=== PATIENT | female | born 1985 | race Caucasian/White ===

== ENCOUNTER 2017-11-04 07:52 | Emergency (ER) | payer OTHER, SELFPAY ==
[2017-11-04 07:53] VITALS: BP 156/94; PULSE 116; RESP 18; TEMP 36.8; O2SAT 97; BMI 26.6
--- NOTE | 2017-11-04 08:16 | ED.VISSUMM ---
- ER Visit Summary Date of Service: 11/04/17 Chief Complaint: [] Left paralumbar back pain for days history of same for years History of Present Illness: The patient is a 32 F [] history of lumbar back pain etiology is unclear possibly related to muscle spasm disc etc. she has been seen and evaluated by physicians in the past it resolves and then recurs for last few days she has had a recurrence of his back pain she basically points to her left lumbar back and again the pain rates her buttock she has had no trauma no fever no cough no abdominal pain no urinary symptoms normal bowel bladder habits she is able to stand and walk without difficulty she does wear a brace to her right knee related to a knee injury for which she has seen was to orthopedics the pain basically intensified today showed no medications at home and she came in for evaluation Physical Examination: [] Vitals are within normal range is complaining of pain she is obviously in no major distress she is holding her left paralumbar back HEENT cardiac pulmonary exam unremarkable M soft nontender the midline back is nontender the pain is to the left paralumbar musculature she has full range of motion of both lower extremities there is no signs of cauda equina. She can stand and walk without difficulty. She can toe raise heel raise knee bend with no signs of motor deficit she indicates the pain radiates to her left buttock, she assures me she is having no difficulty with bowel or bladder habits and she has had no trauma no urinary symptoms and she has had this pain multiple times in the past her father's in the room with her Test Results: [] Emergency Department Course and Treatment: [] Explained all the above to the patient her father at this time we provided her Toradol [place] Norflex I explained imaging could be obtained but would likely not be of benefit given is been no trauma she has had this before they deferred x-rays the father expressed the desire that something definitively be done today about her back pain as she cannot possibly follow up before Monday given the holiday, I explained to him the best course of action is to start her on nonsteroidals, Flexeril, and have her follow up with [facility] who she seen in the past or her primary care physicians for further management and possible referral to back physicians and further management as an outpatient they agree to that plan addition she will be given 1 day off work Treatment Plan: [] Disposition: [] Home stable Impression: [] Acute recurrent lumbar back pain This note was generated with [employer] dictation software. It may contain incorrect words, spelling, and punctuation that were not noted in review of the chart prior to signing ED Disposition - Plan for ED Patient: Chief Complaint: Back Referrals: Nasim Walsh MD [Primary Care Provider] -
--- NOTE | 2017-11-04 08:19 | ED.DEP ---
ED Disposition - Plan for ED Patient: Chief Complaint: Back Instructions: ED Spasm Back No Trauma Prescriptions: Naproxen [Naprosyn] 500 mg PO BID PRN #20 tab Cyclobenzaprine [Flexeril] 10 mg PO TID PRN #10 tab PRN Reason: Muscle Spasm Referrals: Nasim Walsh MD [Primary Care Provider] -
[2017-11-04] MEDS: Ketorolac 60 MG/2 ML Vial IM (08:27)
[2017-11-04] MEDS: HYDROcodone Bitartrate/Apap 5/325 Tablet PO (08:27)
[2017-11-04] MEDS: Orphenadrine 100 MG Tablet PO (08:44)
[2017-11-04 08:48] VITALS: BP 112/68; PULSE 79; RESP 22; O2SAT 98
--- NOTE | 2017-11-04 08:51 | ED.RN ---
THIS NURSE REVIEWED D/C INSTRUCTIONS WITH PT. PT VERBALIZED UNDERSTANDING OF INSTRUCTIONS. FATHER IN THE ROOM ASKING MULTIPLE QUESTIONS. FATHER STATES SHE NEED A DOCTOR'S EXCUSE FOR MONDAY AND MONDAY. THIS NURSE EXPLAINED TO THE PT THAT HER DR EXCUSE IS THROUGH MondayNOVEMBER 06 RETURN TO WORK ON MONDAY. PT FATHER STATES THIS IS RIDICULOUS. SHE NEEDS OFF THROUGH MONDAY. I'LL BE CONTACTING MY CORPORATE PILOT ABOUT THIS. PT DENIES FURTHER NEEDS OR QUESTIONS AT THIS TIME. PT AMBULATES FROM ROOM ON OWN WITHOUT ASSISTANCE FROM STAFF
== END 2017-11-04 08:55 | disposition home or self-care (01) ==
LOC: ED 08:18
PROVIDERS: Emergency Provider Emergency Medicine; Family Provider Internal Medicine; PCP Internal Medicine
DX: M54.5 Low back pain (principal); G89.29 Other chronic pain
CPT/HCPCS: 96372; 99283

== ENCOUNTER → 2018-02-21 13:50 | Outpatient (CLI) | payer OTHER, SELFPAY ==
[2018-01-15 12:35] VITALS: BP 122/68; PULSE 98; RESP 18; TEMP 36.2; O2SAT 96; BMI 28.0
[2018-01-15 12:41] LABS: Internal QC Validated? YES +Cl - CLEAR BKGD
[2018-01-15 12:42] LABS: Pregnancy, Urine Positive Negative
== END ==
LOC: PAT 13:50
PROVIDERS: Family Provider Internal Medicine; PCP Internal Medicine; Visit Provider Anesthesiology Pain Medicine
PROC: 3E0S3BZ Introduction of Anesthetic Agent into Epidural Space, Percutaneous Approach (ICD-10-PCS; CPT 62282; principal; 2018-01-15 13:05)
DX: Z53.8 Procedure and treatment not carried out for other reasons (principal)
CPT/HCPCS: 81025; J7120; J3490

== ENCOUNTER 2018-09-12 23:00 | Inpatient (IN) | payer OTHER, SELFPAY ==
[2018-09-12 23:18] VITALS: BMI 35.2
[2018-09-13] MEDS: miSOPROStol 25 MCG TABLET VAGINAL ×2 (00:20→04:20)
[2018-09-13 00:39] LABS: International Normalized Ratio 0.9; Prothrombin Time (Protime)PT. 11.9 SECONDS (11.7-14.9)
[2018-09-13 00:40] LABS: Partial Thromboplast Time 26.9 Seconds (24.1-36.2)
[2018-09-13 00:44] LABS: Absolute Lymphocyte Count 2.85 X10^3/ul (0.83-4.51); Absolute Neutrophil Count 14.5 X10^3/uL (2.0-7.7); Basophil# 0.02 X10^3/uL; Basophil% 0.1 % (0-1); Eosinophil# 0.09 X10^3/uL; Eosinophils% 0.5 % (0-5); Hematocrit 35.4 % (37-47); Hemoglobin 11.9 g/dl (12.0-15.0); Lymphocyte # 2.85 X10^3/ul (4.0); Lymphocyte % 15.5 % (19-41); Mean Corp Hgb Conc 33.6 g/gl (32-36); Mean Corpuscular Hgb 30.7 pg (27.0-32.0); Mean Corpuscular Volume 91.5 fL (81-99); Mean Platelet Vol. 9.4 fl (6.2-12.0); Monocyte# 0.82 X10^3/uL; Monocyte% 4.5 % (0-10); Neutrophil # 14.46 X10^3/uL (2.7-7.7); Neutrophil % 78.9 % (47-70); Platelet Count 484 K/mm3 (150-450); RBC Distribution Width CV 14.5 % (11.6-14.6); RBC Distribution Width SD 47.8 fl (35.1-43.9); Red Blood Count 3.87 M/mm3 (4.2-5.4); White Blood Count 18.3 K/mm3 (4.4-11.0)
[2018-09-13 00:46] LABS: POSITIVE COUNT NO; POSITIVE DIFFERENTIAL NO; POSITIVE MORPHOLOGY NO
[2018-09-13 00:47] LABS: AST(SGOT) 13 U/L (15-37); Alanine Aminotransfer ALT/SGPT 14 U/L (13-56); Creatinine, Serum 0.79 mg/dL (0.55-1.02); EST Glomerular Filtration Rate 89 mL/min (>60); Est Glom Filt Rate - Afr Amer 108 mL/min (>60); Estimated Creatinine Clearance 88.28 ml/min
[2018-09-13 00:53] LABS: Amphetamine Urine VISTA NEGATIVE (<1000 ng/mL); Barbiturate Urine VISTA NEGATIVE (< 200 ng/mL); Benzodiazepine Urine VISTA NEGATIVE (< 200 ng/mL); Cocaine Urine VISTA NEGATIVE (< 300 ng/mL); Ecstacy Urine VISTA NEGATIVE (< 500 ng/mL); Methadone Urine VISTA NEGATIVE (< 300 ng/mL); PCP Urine VISTA NEGATIVE (< 25 ng/mL); THC Urine VISTA NEGATIVE (< 50 ng/mL); Vista UDS pH Range 7
[2018-09-13 00:55] LABS: Protein, Urine (Random) 23.4 mg/dL (<11.9); Protein:Creat Ratio 278 mg/g CRE (0-200)
[2018-09-13 01:46] LABS: Bedside Glucose 94 mg/dL (70-110)
[2018-09-13 05:06] LABS: Bedside Glucose 87 mg/dL (70-110)
[2018-09-13] MEDS: Acetaminophen 325 MG Tablet PO (06:42)
[2018-09-13] MEDS: 0.9% Normal Saline 100 ML IV.SOLN. INTRA-UTER (08:35)
[2018-09-13] MEDS: Lactated Ringers 1,000 ML 50 ML IV ×4 (08:36→22:21)
--- NOTE | 2018-09-13 08:51 | PCM.HP.OB ---
History Date of Admission: 09/12/18 Final HIEU: 09/20/18 Gestational age: 39 Weeks and 0 Days History of this : This is a 32 year-old, G [], P [], at 40 weeks gestational age. Surgical History: Surgical History (Last Updated 09/13/18 @ 15:44 by Tiffanie Dhaliwal) H/O dilation and curettage Z98.890 Allergies guaifenesin Allergy (Verified 09/12/18 23:37) Other NOT SURE REACTION, WAS A CHILD WHEN HAD REACTION. prednisone Allergy (Verified 09/12/18 23:37) Hives tramadol Adverse Reaction (Verified 09/12/18 23:37) Upset Stomach Home Medications: Home Medications Ferrous Sulfate [Iron] 1 tab PO DAILY 09/12/18 Pnv 29-1 Tablet 1 tab PO DAILY 09/12/18 Smoking Status: Current every day smoker Alcohol: None Substance Use Type: Marijuana Heart Tracin with mod variability, accels TOCO Analysis: irregular History Past Pregnancies: Past Pregnancies Delivery Date Name GA/Weeks Outcome Route Weight Gender Labor Length Anesthesia Delivery Location Provider FOB Labs: see [facility] prenatals Physical Exam General: Alert, Oriented x3 Abdomen: Soft, Non Tender, Non-Distended, Gravid SLUNK SKIN CURER: Normal external genitalia Estimated gestational size: Appropriate for gestational size Cervix Dilation (cm): 0.5 Station: -2 Effacement (%): 70 Assessment/Plan This is a 32 year-old female at 39 weeks gestational age. Admit to L&D Gestational diabetes - was controlled well on insulin. BS normal in labor. Induction - s/p cytotec x2. Start pitocin. Attempted to placed intracervical henderson. GBS negative Pain - epidural when desired EFW - less than 4500g, patient with adequate pelvis Routine care
--- NOTE | 2018-09-13 08:57 | HP.PCM_ITS ---
History Date of Admission: 09/12/18 Final HIEU: 09/20/18 Gestational age: 39 Weeks and 0 Days History of this : This is a 32 year-old, G [], P [], at 40 weeks gestational age. Surgical History: Surgical History (Last Updated 09/13/18 @ 15:44 by Tiffanie Dhaliwal) H/O dilation and curettage Z98.890 Allergies guaifenesin Allergy (Verified 09/12/18 23:37) Other NOT SURE REACTION, WAS A CHILD WHEN HAD REACTION. prednisone Allergy (Verified 09/12/18 23:37) Hives tramadol Adverse Reaction (Verified 09/12/18 23:37) Upset Stomach Home Medications: Home Medications Ferrous Sulfate [Iron] 1 tab PO DAILY 09/12/18 Pnv 29-1 Tablet 1 tab PO DAILY 09/12/18 Smoking Status: Current every day smoker Alcohol: None Substance Use Type: Marijuana Heart Tracin with mod variability, accels TOCO Analysis: irregular History Past Pregnancies: Past Pregnancies Delivery Date Name GA/Weeks Outcome Route Weight Gender Labor Length Anesthesia Delivery Location Provider FOB Labs: see [facility] prenatals Physical Exam General: Alert, Oriented x3 Abdomen: Soft, Non Tender, Non-Distended, Gravid CABLE RIGGER: Normal external genitalia Estimated gestational size: Appropriate for gestational size Cervix Dilation (cm): 0.5 Station: -2 Effacement (%): 70 Assessment/Plan This is a 32 year-old female at 39 weeks gestational age. Admit to L&D Gestational diabetes - was controlled well on insulin. BS normal in labor. Induction - s/p cytotec x2. Start pitocin. Attempted to placed intracervical henderson. GBS negative Pain - epidural when desired EFW - less than 4500g, patient with adequate pelvis Routine care
[2018-09-13 09:05] LABS: Bedside Glucose 119 mg/dL (70-110)
[2018-09-13] MEDS: Oxytocin 30 units/NS 500 ml 30 UNITS/500 ML IV.SOLN IV (09:17)
[2018-09-13] MEDS: fentaNYL-bupivacaine (epidural) 100 ML BAG EPIDURAL ×3 (11:50→21:11)
[2018-09-13 13:15] LABS: Bedside Glucose 77 mg/dL (70-110)
--- NOTE | 2018-09-13 13:36 | PCM.PN.BLA ---
Progress Note S: Patient comfortable with epidural O: vcx - 1.5/70/-2 AROM clear fluid fhts - 135 with mod variability, accels tocos - Q2-4 minutes A&P: continue pitocin induction GDM - continue accuchecks
[2018-09-13 21:26] LABS: Bedside Glucose 79 mg/dL (70-110)
[2018-09-13 21:31] LABS: Bedside Glucose 109 mg/dL (70-110)
[2018-09-14] MEDS: fentaNYL-bupivacaine (epidural) 100 ML BAG EPIDURAL (04:18)
[2018-09-14] MEDS: Lactated Ringers 1,000 ML 15 ML IV (04:51)
[2018-09-14] MEDS: Oxytocin 30 units/NS 500 ml 30 UNITS/500 ML IV.SOLN 334 UNITS IV (04:55)
--- NOTE | 2018-09-14 05:19 | PCM.OB.VAG ---
Vaginal Delivery Maternal Presentation: Medically Indicated Induction Method of Induction: Pitocin, Amniotomy, Cytotec Medical Reason for Induction: Maternal Medical Condition: list: - GDM on insulin Amniotic Membrane Rupture Type: Artificial Amniotic Fluid Description: Clear Final HIEU: 09/20/18 Gestational age: 39 Weeks and 1 Days Date of Procedure: 09/14/18 Pre-Operative Diagnosis: Gestational diabetes Post-Operative Diagnosis: Same Surgery/ Procedure Performed: Spontaneous Vaginal Delivery Type of Anesthesia: Epidural Description of Procedure: Patient prepped & draped when c/c/+3. She continued pushing for another 2 hours. Patient made some progress but was noted to have a tight vaginal & perineal band. Decision made to cut 2nd degree episiotomy. Patient continued pushing & delivered head. Shoulders & body easily followed. placed on maternal abdomen where 3VC clamped & cut in delayed fashion. Placenta delivered with gentle traction. Good uterine tone obtained. Presentation: DAIN Placental Delivery Description: Expressed Placenta Disposition: [facility] Cord Vessel Description: 3 Vessels Cord Entanglement: Around neck x 1, loose Estimated Blood Loss: 300ml A gender: Male (1 minute): 8 (5 minute): 9 Episiotomy Description: 2nd degree - repaired with 3-0 vicryl Laceration: None Medications given after delivery: IV Pitocin Complications: None
[2018-09-14] MEDS: Oxytocin 30 units/NS 500 ml 30 UNITS/500 ML IV.SOLN 167 UNITS IV (05:25)
[2018-09-14] MEDS: Acetaminophen 500 MG Tablet 1000 MG PO ×2 (05:45→18:49)
[2018-09-14] MEDS: Cefazolin 2 GM in 0.9% Normal Saline 100 ML IV (06:03)
--- NOTE | 2018-09-14 06:10 | EKG12_ITS ---
Test Reason : Blood Pressure : / mmHG Vent. Rate : 136 BPM Atrial Rate : 136 BPM P-R Int : 114 ms QRS Dur : 074 ms QT Int : 296 ms P-R-T Axes : 056 072 013 degrees QTc Int : 445 ms Sinus tachycardia Otherwise normal ECG No previous ECGs available Confirmed by JORY LAL, ANA ([id number]), publishing editor NITISH GAMINO ([id number]) on 09/26/2018 2:04:37 PM Referred By: Danyell Bianchi Confirmed By:ANA CORLEY MD
[2018-09-14] MEDS: 0.9% Saline Lock 10 ML Syringe IV ×2 (07:32→21:59)
[2018-09-14 07:55] LABS: Bedside Glucose 103 mg/dL (70-110)
[2018-09-14 08:11] LABS: Bedside Glucose 102 mg/dL (70-110)
[2018-09-14 09:40] VITALS: BP 119/62; PULSE 124; RESP 24; TEMP 36.6; O2SAT 97
[2018-09-14 12:00] VITALS: BP 115/64; PULSE 137; RESP 16; TEMP 36.4
--- NOTE | 2018-09-14 12:17 | PCM.PN.OB ---
Subjective: Patient walking at bedside, reporting no issues at this time. Denies issues with ambulation or urination. Patient had + BM today - taking stool softeners as directed. Patient is bottlefeeding, reports that baby is tolerating formula well. Patient denies SOB, chest pain, REY, dizziness or scotoma. Objective: VSS, Normotensive - see nursing note for vital. Most recent HR = 124. Blood sugar this morning 102 Breasts soft, nipples without cracks or blisters. No erythema noted. CTAB, RRR Abdomen NT x 4 quadrants, FF midline 2FB below umbilicus Perineum well-approximated, small rubra lochia Trace swelling in LE, non-pitting Negative calf tenderness noted BL - Physical Exam General: Alert, Oriented x3, Cooperative HEENT: Atraumatic, Normocephalic Neck: Supple Lungs: Clear to auscultation, Normal air movement Cardiovascular: Regular rate, No murmurs Abdomen: Bowel Sounds Present, Soft, Non Tender, Passing Flatus, No hernias noted Extremities: Capillary Refill Less than 3 Seconds, Edema - trace edema, Peripheral Pulses Normal Skin: No rashes, No breakdown Musculoskeletal: No Tenderness to Palpation of Joints or Extremities Neurological: Cranial nerves II-XII grossly intact, Deep Tendon Reflexes 2+/4 and Symmetrical Psych/Mental Status: Normal Affect, Appropriate Vital Signs Temp Pulse Resp BP Pulse Ox 97.9 F 124 H 24 H 119/62 97 09/14/18 09:40 09/14/18 09:40 09/14/18 09:40 09/14/18 09:40 09/14/18 09:40 Oxygen Delivery Method Room Air Weight: 205 lb Body Mass Index (BMI) 35.2 Intake and Output for Last 24 Hours 09/12/18 09/13/18 09/14/18 23:59 23:59 23:59 Intake Total 2590 / 2590 1007 / 1007 Balance 2590 / 2590 1007 / 1007 POC Glucose 09/14/18 09/14/18 09/13/18 08:04 00:54 21:24 POC Glucose 102 103 109 09/13/18 09/13/18 16:58 13:08 POC Glucose 79 77 Medical Necessity - Tobacco Use Smoking Status: Current every day smoker Assessment/Plan 32 y/o PPD #0, Normal , Sinus Tachycardia, Gestational Diabetes - Resolved P: 1) Continue present orders at this time - recheck fasting blood sugar in the morning 2) Encourage patient to push PO fluids at this time 3) Anticipate discharge to home tomorrow Cally LONG
--- NOTE | 2018-09-14 14:58 | CASEMGMT ---
Addendum entered and electronically signed by Soco Martinez 09/14/18 16:21: Reviewed and approve MH TEACHER student documentation below. -Soco Martinez, ELISSA, MAINFRAME PROGRAMMER ANALYST Original Note: Social Work Labor and Delivery Date of Referral: 09/13/18 Time of Referral: 830am Referred by: verbal notification from charge nurse Date of intervention: 09/14/18 Time of intervention: 2pm Reason for referral: positive tox screen during history obtained from: medical record, mother of the baby Giovanna morel (MOB) and father of the baby (FOB) Genaro morel. Household Composition: MOB and FOB live together. MOB reports no history of domestic violence or safety concerns. Patients parent guardian status: MOB and FOB have been together for 15 years. This is MOB and FOB's first child. Medical History: MOB was to 1 after the of baby Deon. MOB started care at 8 weeks. Baby Deon was born 09/14/18 at 5lbs and 16oz with scores of 8 and 9. Educational status: MOB graduated high school and confirmed to be able to read, write, and comprehend. Financial Status: MOB worked at [employer] during and stopped working roughly 3 months before delivery. FOB works at [employer]. Infant supplies: MOB and FOB report to have a car seat, Halo bassinet, bouncer, monitor, clothing, diapers, wipes and formula. Childcare/givers: MOB and FOB will be primary childcare givers. NELLY reported that her mother and father will be supplemental caregivers. Transportation: NELLY does not drive but FOElizabeth does drive. NELLY's father also helps with transportation Programs/agencies involved: MOB and FOB are not connected with any agencies. MOB and FOB requested a [employer] application and Food card application. MOB accepted [facility] referral. Children Services/ Legal Issues: MOB and FOB denied any history of children services of legal issues. Behavioral Health Issues: Mental Health History: MOB does not have any mental health diagnoses. MOB denies past or present thoughts of suicide or attempts. Substance Use History: MOB reports to use marijuana for back pain. MOB quit roughly three months ago. MOB also tested positive for oxycodone during . MOB's declaration of quitting marijuana was in both April 2018 and early June 2018. Family History: MOB and FOB reported that FOElizabeth's father abuses alcohol. Maternal drug screens: MOB tested positive for marijuana and oxycodone on 02/09/18. Mob tested positive for marijuana on 03/08/18. MOB tested negative at delivery on 09/13/18 Drug Screens: Urine and Meconium are pending at this time. Family/Social Stressors: MOB reports not using marijuana is difficult and a potential stressor. Support Systems: MOB's parents are support. FOElizabeth's sister and [id number] are also supports. PPD/Shaken Baby/Safe Sleeping: MOB and FOB review PPD/Shaken Baby/Safe Sleeping together and parents report to understand. ASSESSMENT: MOB and FOB were in room with baby Deon. MOB and FOB answered all questions appropriately. FOB stayed to answer general questions and review PPD/Shaken baby/safe sleeping. FOB was asked to leave the room so MOB could speak privately. MOB repotred to use marijuana for back pain. MOB also acknowledged usage of oxycodone. MOB reported to understand the dangers of usage during . MOB has quit marijuana for roughly 3 months now. MOB reported to have lessened cigarette smoking, as well. MOB reports that FOB still uses marijuana occasionally. MOB's plan of safety is to not use marijuana again unless back pain returns. MOB has alterative for pain management which includes shots for pain. MOB plans to try this alternative. MOB reported to also have plan of safety to have no marijuana in the home and if does use again to have dinkey engineer for Deon. MOB reports that FOB only uses marijuana at work. MOB was informed about [place] law and report being made to Children Services. MOB denied any history of mental health diagnoses and suicide thoughts. MOB reports to be doing well with new baby and excited to take Deon home. PLAN: MOB to home with baby. salvage worker provided [facility] resource packet, PPD information, WIC/HMG information. Social work to submit CPS referral. Social work to submit [facility] referral. Social work to provide WIC application and food card application. -Tina Fleming, ACTHY Student Metal Room Dental Technician.
[2018-09-14 15:50] VITALS: BP 133/76; PULSE 134; TEMP 36.6
--- NOTE | 2018-09-14 15:55 | CASEMGMT ---
Addendum entered and electronically signed by Soco Martinez 09/14/18 16:21: Reviewed and approve CRANE FOLLOWER student documentation below. Referral to children services made due to substance exposed . -ELISSA Healy, RAILWAY TRACTION LINE WORKER Original Note: Social Work Labor and Delivery Children Services report securely made to [facility] Services at [phone]. Help me grow referral securely submitted online via [facility]'s website from verbal consent of MOB. WIC application and Food card application provided to MOB an FOB. No other services requested or indicated at this time. -Tina Fleming, CRANE FOLLOWER Student Pit Crew Support Worker.
[2018-09-14 20:10] VITALS: PULSE 114
[2018-09-14 20:17] VITALS: BP 131/59; PULSE 114; RESP 20; TEMP 36.6; O2SAT 98
[2018-09-15 00:10] VITALS: BP 124/59; PULSE 106; RESP 18; TEMP 36.3; O2SAT 98
[2018-09-15 03:40] VITALS: BP 139/75; PULSE 116; RESP 16; TEMP 36.4; O2SAT 97
[2018-09-15] MEDS: Etonogestrel 68 MG IMPLANT SQ (06:50)
--- NOTE | 2018-09-15 07:02 | PCM.PN.OB ---
Subjective: Patient sitting up in bed at this time, at bedside underneath bililights. Patient reports that bleeding has decreased, reports no issues with urination or ambulation. Patient has continued perineal discomfort and stitches feel sensitive. Patient desires Nexplanon to be placed at this time. Objective: VSS, Afebrile. HR = 100-114 Breasts soft, nipples intact Abdomen NT x 4 quadrants, FF midline 2FB below umbilicus +2/4 reflexes, no edema in LE scant rubra lochia, perineum well-approximated negative calf tenderness to palpation - Physical Exam General: Alert, Oriented x3, Cooperative HEENT: Atraumatic, Normocephalic Neck: Supple Lungs: Normal air movement Cardiovascular: Regular rate, No murmurs Abdomen: Soft, Non Tender Extremities: No edema, Capillary Refill Less than 3 Seconds Skin: No rashes, No breakdown Musculoskeletal: No Tenderness to Palpation of Joints or Extremities Neurological: Cranial nerves II-XII grossly intact Psych/Mental Status: Normal Affect, Appropriate Vital Signs Temp Pulse Resp BP Pulse Ox 97.6 F L 116 H 16 139/75 H 97 09/15/18 03:40 09/15/18 03:40 09/15/18 03:40 09/15/18 03:40 09/15/18 03:40 Oxygen Delivery Method Room Air Weight: 205 lb Body Mass Index (BMI) 35.2 Intake and Output for Last 24 Hours 09/13/18 09/14/18 09/15/18 23:59 23:59 23:59 Intake Total 2590 / 2590 1007 / 1007 Output Total 1400 / 1400 Balance 2590 / 2590 -393 / -393 POC Glucose 09/14/18 09/14/18 08:04 00:54 POC Glucose 102 103 Medical Necessity - Tobacco Use Smoking Status: Current every day smoker Assessment/Plan 32 y/o s/p , PPD #1, Sinus Tachycardia - improved, Nexplanon Insertion P: 1) Nexplanon placed per patient wishes 2) Continue PP orders 3) IV heplock removed, patient vital signs stable 4) Anticipate discharge to home tomorrow Cally Kerr APRN-CJ
[2018-09-15 09:00] VITALS: BP 142/104; PULSE 129; RESP 18; TEMP 36.2
[2018-09-15] MEDS: Senna/Docusate Sodium 1 Tablet PO (09:02)
--- NOTE | 2018-09-15 09:59 | PCM.PN.BLA ---
Progress Note Addendum: Patient is feeling very well - was notified by pediatric providers that baby may be well enough to be discharged to home later today. Patient is interested and feels well enough for discharge this afternoon. Patient continues to deny issues with urination and ambulation. Denies pain from Nexplanon insertion. Denies any other issues. A: 32 y/o PPD #1, Normal course, Sinus Tachycardia resolved, GDM - resolved P: 1) discharge order placed, patient to be discharged pending discharge 2) RTC at 2 and 6 weeks PP Cally LONG
--- NOTE | 2018-09-15 10:08 | DCINST_ITS ---
Discharge Diet: No Restrictions Discharge Activity: Return to Normal Activity, May not drive while taking narcotic pain medications., May Shower May resume sexual activity in: 4-6 weeks Additional Activity Instructions:: Nothing in the vagina for 4-6 weeks. You may return to work/school in 6 weeks. Call your doctor if your incision/area has: Continuous Slow Oozing, Sudden Increased Bleeding, Increased Pain/ Swelling, Increased Redness, Foul Smelling Discharge Call your doctor if you observe: Fever of 101 or Higher, Inability to urinate, Inability to have a bowel movement, Using more than one pad per hour, Uncontrolled pain Additional Instructions: If you experience any of the following, contact your healthcare provider. * Bleeding that soaks a pad every hour for 2 hours * Fever 100.4 or higher * Unrelieved incision or abdominal pain * Swelling, redness, discharge or bleeding from your incision or episiotomy site * Your incision begins to separate * Problems urinating (including inability to urinate or burning while urinating). * Visual changes * Severe headache * Flu-like symptoms * Pain or redness in one of both of your breasts * Pain, warmth, tenderness or swelling in your legs, especially the calf area * Frequent nausea and vomiting * Symptoms of depression or anxiety If you experience any of the following, call 911 or go to the nearest Emergency Room. * Chest pain * Problems breathing * Seizure activity * Partial or complete paralysis of a body part, slurred speech, weakness or drooping of the face, or a sudden inability to walk or hold your balance Allergies/Adverse Reactions: Allergies guaifenesin Allergy (Verified 09/12/18 23:37) Other NOT SURE REACTION, WAS A CHILD WHEN HAD REACTION. prednisone Allergy (Verified 09/12/18 23:37) Hives tramadol Adverse Reaction (Verified 09/12/18 23:37) Upset Stomach Medications to take at Discharge Ferrous Sulfate [Iron] 1 tab PO DAILY 09/12/18 Pnv 29-1 Tablet 1 tab PO DAILY 09/12/18 Acetaminophen [Tylenol] 1,000 mg PO Q8H PRN PRN #15 tablet 09/15/18 Ibuprofen [Motrin] 600 mg PO Q6H PRN PRN #30 tablet 09/15/18 The following prescriptions were given: Ibuprofen [Motrin] 600 mg PO Q6H PRN PRN #30 tablet PRN Reason: Mild Pain (-08/19) Acetaminophen [Tylenol] 1,000 mg PO Q8H PRN PRN #15 tablet PRN Reason: Mild Pain (-08/19) Please Follow Up With: Tiffanie Dhaliwal When: Call to make an appointment with your doctor in 2 weeks and 6 weeks. Primary Care Physician: Nasim Walsh MD [Primary Care Provider] - Test Results: Test results from this visit will be discussed in further detail at your follow- up appointment, if applicable. Proposed Discharge Date: 09/15/18
[2018-09-15 14:00] VITALS: BP 136/79; PULSE 120; RESP 16; TEMP 36.8
[2018-09-15] MEDS: Ibuprofen 600 MG Tablet PO (16:58)
[2018-09-15 20:00] VITALS: BP 131/66; PULSE 102; RESP 18; TEMP 36.4; O2SAT 97
[2018-09-16 02:10] VITALS: BP 133/69; PULSE 105; RESP 16; TEMP 36.6; O2SAT 98
[2018-09-16 05:06] LABS: Bedside Glucose 95 mg/dL (70-110)
[2018-09-16 08:04] VITALS: BP 131/72; PULSE 117; RESP 16; TEMP 36.3; O2SAT 98
[2018-09-16] MEDS: Ibuprofen 600 MG Tablet PO (08:07)
[2018-09-16] MEDS: Senna/Docusate Sodium 1 Tablet PO (08:08)
--- NOTE | 2018-09-16 10:33 | PN.OBGYN_ITS ---
Subjective: Patient ambulating around the room. Reports no issues at this time. Notes that her perineum is feeling less sore today and that she is not bleeding much anymore. Baby was not discharged to home yesterday, so discharge order was cancelled. Baby's bilirubin is now in the normal range, anticipate discharge today. Objective: VSS, Afebrile Nipples without cracks or blisters, breasts soft Abdomen NT x 4 quadrants, FF midline 3FB below umbilicus +2/4 reflexes in LE, no edema noted scant rubra lochia, perineum well-approximated negative calf tenderness to palpation - Physical Exam General: Alert, Oriented x3, Cooperative HEENT: Atraumatic, Normocephalic Neck: Supple Lungs: Normal air movement Cardiovascular: Regular rate Abdomen: Soft, Non Tender Extremities: No edema, Capillary Refill Less than 3 Seconds Skin: No rashes, No breakdown Musculoskeletal: No Tenderness to Palpation of Joints or Extremities Neurological: Cranial nerves II-XII grossly intact, Deep Tendon Reflexes 2+/4 and Symmetrical Psych/Mental Status: Normal Affect, Appropriate Vital Signs Temp Pulse Resp BP Pulse Ox 97.4 F L 117 H 16 131/72 H 98 09/16/18 08:04 09/16/18 08:04 09/16/18 08:04 09/16/18 08:04 09/16/18 08:04 Oxygen Delivery Method Room Air Weight: 205 lb Body Mass Index (BMI) 35.2 Intake and Output for Last 24 Hours 09/14/18 09/15/18 09/16/18 23:59 23:59 23:59 Intake Total 1007 / 1007 Output Total 1400 / 1400 Balance -393 / -393 POC Glucose 09/15/18 07:29 POC Glucose 95 Medical Necessity - Tobacco Use Smoking Status: Current every day smoker Assessment/Plan 32 y/o s/p , PPD #2, Normal Course P: 1) Discharge to home today pending discharge 2) RTC to [facility] at 2 and 6 weeks PP Cally LONG
== END 2018-09-16 11:50 | disposition home or self-care (01) | DRG 806 ==
PROVIDERS: Admitting Provider Obstetrics & Gynecology; Family Provider Internal Medicine; PCP Internal Medicine; Referring Provider Obstetrics & Gynecology; Visit Provider Obstetrics & Gynecology
DX: O24.424 Gestational diabetes mellitus in childbirth, insulin controlled (principal); O86.4 Pyrexia of unknown origin following delivery; Z37.0 Single live birth; O69.81X0 Labor and delivery complicated by cord around neck, without compression, not applicable or unspecified; O99.334 Smoking (tobacco) complicating childbirth; Z3A.39 39 weeks gestation of pregnancy; O90.89 Other complications of the puerperium, not elsewhere classified; R00.0 Tachycardia, unspecified
CPT/HCPCS: 59025; 59050; 80307; 82565; 82570; 82962; 84156; 84450; 84460; 84550; 85025; 85610; 85730; 86850; 86900; 93005; 99218; J7120; A4216; G0378

== ENCOUNTER 2019-11-07 19:39 | Emergency (ER) | payer OTHER, SELFPAY ==
[2019-11-07 19:40] VITALS: BP 160/87; PULSE 112; RESP 18; TEMP 36.8; O2SAT 98; BMI 29.9
[2019-11-07] MEDS: Diphth,Pertuss(Acell),Tet Vac 0.5 ML Vial IM (21:08)
[2019-11-07] MEDS: Amox/Clavulanate 875 MG Tablet PO (21:08)
--- NOTE | 2019-11-07 22:00 | ED.DEP ---
ED Disposition - Plan for ED Patient: Instructions: ED Bite Cat Prescriptions: Amox/Clavulanate Tablet [Augmentin Tablet] 875 mg PO Q12H #20 tablet Referrals: Nasim Walsh MD [Primary Care Provider] -
--- NOTE | 2019-11-07 22:03 | ED.VISSUMM ---
- ER Visit Summary Date of Service: 11/07/19 Chief Complaint: Cat bite History of Present Illness: The patient is a 34 F presenting with cat bite. Patient states her cat's paw got caught in a TV stand. She was trying to help it get his paw out and the cat was upset and bit both of her hands. This is her cat and it is an indoor cat. Her last tetanus is unknown. No other injuries. Physical Examination: Vitals are stable. Patient is afebrile. Alert no acute distress. HEENT exam is unremarkable. Neck is supple. Lungs are clear and equal bilaterally. Heart is regular rate and rhythm. Extremities right hand: 3 dorsal punctures, left hand: 2 dorsal punctures. Active full range of motion. Tendon function is normal. Normal cap refill. Skin is warm and dry. No focal neurologic deficit. Remainder of exam is unremarkable. Emergency Department Course and Treatment: Wounds were copiously irrigated. She was given tetanus IM. She was given Augmentin. She is advised signs of infection. Advised to return to the ED for worsening complaints. Advised follow-up with primary care physician. Disposition: Discharge home Impression: Cat bite, bilateral hands This note was generated with [employer] dictation software. It may contain incorrect words, spelling, and punctuation that were not noted in review of the chart prior to signing ED Disposition - Plan for ED Patient: Instructions: ED Bite Cat Prescriptions: Amox/Clavulanate Tablet [Augmentin Tablet] 875 mg PO Q12H #20 tab Prescription Printed Referrals: Nasim Walsh MD [Primary Care Provider] -
[2019-11-07 22:25] VITALS: RESP 16
== END 2019-11-07 22:25 | disposition home or self-care (01) ==
LOC: ED 21:36
PROVIDERS: Emergency Provider Emergency Medicine; PCP Internal Medicine
DX: F17.200 Nicotine dependence, unspecified, uncomplicated (principal); W55.01XA Bitten by cat, initial encounter
CPT/HCPCS: 90471; 90715; 96372; 99283

== ENCOUNTER 2023-07-03 17:34 | Emergency (ER) | payer OTHER, SELFPAY ==
[2023-07-03 17:36] VITALS: BP 136/60; PULSE 119; RESP 22; TEMP 37.2; O2SAT 100
--- NOTE | 2023-07-03 17:47 | EX.ED.DYSGE1 ---
HPI <LENORE Guerra - Last Filed: 07/03/23 21:14> History of Present Illness Chief Complaint: Back Narrative Narrative: 37-year-old female states yesterday she had bilateral low back pain which she thought was a flareup of her chronic back issue but today the pain is radiating around to her bilateral pelvic area. Nothing makes it better or worse. Sometimes the pain is sharp and causes her to feel nauseous. No vomiting. No fever or chills. She is urinating normally with no burning or hematuria. No vaginal discharge. LMP was about 3 weeks ago. She is having normal daily bowel movements and denies melena or hematochezia. No history of abdominal surgeries. PFSH <LENORE Guerra - Last Filed: 07/03/23 21:14> [facility] Medical History (Updated 07/03/23 @ 21:[address] Khang James MD) Anemia Bulging lumbar disc Gestational diabetes Home Medications Pnv 29-1 Tablet 1 tab PO DAILY 09/12/18 [History Last Taken 09/12/18 17:30] ferrous sulfate 325 mg (65 mg iron) tablet (iron) 1 tab PO DAILY 09/12/18 [History Last Taken 09/12/18] acetaminophen 500 mg tablet 1,000 mg (2 x 500 mg) PO Q8H PRN PRN Mild Pain (1-3/10) ##15 09/15/18 [Rx Last Taken Unknown] ibuprofen 600 mg tablet 600 mg PO Q6H PRN PRN Mild Pain (1-3/10) ##30 09/15/18 [Rx Last Taken Unknown] amoxicillin 875 mg-potassium clavulanate 125 mg tablet 875 mg (0.875 x 875-125 mg) PO Q12H #20 tabs 11/07/19 [Rx Last Taken Unknown] Allergy/AdvReac Type Severity Reaction Status Date / Time guaifenesin Allergy Other Verified 07/03/23 17:35 prednisone Allergy Hives Verified 07/03/23 17:35 tramadol AdvReac Upset Verified 07/03/23 17:35 Stomach Surgical History H/O dilation and curettage Social History Smoking Status: Current every day smoker tobacco type: cigarettes ROS <LENORE Guerra - Last Filed: 07/03/23 21:14> ROS ED ROS Narrative Constitutional: Negative for fever, chills, malaise. CVS: Negative for chest pain, syncope. Respiratory: Negative for shortness of breath, cough. GI: Positive for abdominal pain, nausea. Negative for vomiting, diarrhea, constipation, melena, hematochezia. : Negative for dysuria, hematuria or frequency. EXAM <LENORE Guerra - Last Filed: 07/03/23 21:14> Physical Exam Narrative Exam Narrative: CONST: Patient sitting in no acute distress. EYES: Normal inspection. NECK: Normal inspection. RESP: No respiratory distress, CTAB. CVS: Regular rate and rhythm, no murmur, no gallop. ABD: Soft with bilateral lower pelvic tenderness, no guarding or rebound, nondistended, no hepatosplenomegaly. Back: Normal inspection, no midline tenderness. SKIN: Color normal, no rash, warm, dry, intact. EXTREMITIES: Normal appearance, no pedal edema. NEURO: Oriented x4. PSYCH: Normal affect. Const Vital Signs: 07/03/23 17:36 07/03/23 19:43 Temperature 99 F Temperature Source Temporal Pulse Rate 119 H 95 Respiratory Rate 22 H 16 Blood Pressure 136/60 H 117/58 L Blood Pressure Mean 85 77 Pulse Ox 100 99 Oxygen Delivery Method Room Air Room Air <Dr. Khang James MD - Last Filed: 07/03/23 21:26> Physical Exam Const Vital Signs: 07/03/23 17:36 07/03/23 19:43 Temperature 99 F Temperature Source Temporal Pulse Rate 119 H 95 Respiratory Rate 22 H 16 Blood Pressure 136/60 H 117/58 L Blood Pressure Mean 85 77 Pulse Ox 100 99 Oxygen Delivery Method Room Air Room Air MDM <LENORE Guerra - Last Filed: 07/03/23 21:14> MDM MDM Narrative Medical decision making narrative: Patient has bilateral pelvic pain and low back pain. She appears uncomfortable but nontoxic. HR is 119 with otherwise normal vital signs. She Her abdomen is soft and she reports tenderness when I palpate both lower pelvic regions. She states it makes her back hurt more. She has no reproducible tenderness of the spine, flank or back. No skin changes. Labs show white count 12.0. Mild hypokalemia at 3.4 which was replaced p.o., glucose 136, otherwise normal. Urinalysis and test is negative. CT scan shows no acute findings. Gallbladder is contracted but she has no RUQ tenderness or abnormalities that would suggest acute gallbladder process. After IV Toradol she is feeling improved and comfortable going home, discussed taking [id number] analgesia and follow-up with her PCP. She was discharged in stable condition. Differential: Appendicitis, diverticulitis, ovarian etiology, acute on chronic low back pain Lab Data Attestation: I reviewed the patient's lab results. Labs: Laboratory Results - last 24 hr 07/03/23 07/03/23 18:00 18:50 WBC 12.0 H RBC 4.48 Hgb 13.4 Hct 39.9 MCV 89.1 MCH 29.9 MCHC 33.6 RDW Std Deviation 38.8 RDW Coeff of [place]useb[place] 11.9 Plt Count 419 MPV 8.8 Immature Gran % (Auto) 0.400 Neut % (Auto) 80.9 H Lymph % (Auto) 14.9 L [place] % (Auto) 3.4 Eos % (Auto) 0.2 Baso % (Auto) 0.2 Absolute Neuts (auto) 9.7 H Absolute Lymphs (auto) 1.78 Nucleated RBC % 0 Sodium 138 Potassium 3.4 L Chloride 105 Carbon Dioxide 28.0 Anion Gap 5 BUN 8 Creatinine 0.78 Est GFR (MDRD) Af Amer 107 Est GFR (MDRD) Non-Af 89 BUN/Creatinine Ratio 10.3 Glucose 136 H Calcium 9.3 Urine Color Yellow Urine Clarity Clear Urine pH 7.0 Ur Specific [place] [employer] 1.010 Urine Protein 15 H Urine Glucose (UA) Normal Urine Ketones Negative Urine Occult Blood Negative Urine Nitrite Negative Urine Bilirubin Negative Urine Urobilinogen Normal Ur Leukocyte Esterase Negative Urine RBC 0 SEEN Urine WBC 0 SEEN Ur Squamous Epith Cells 0-5 SEEN Urine Bacteria 0 SEEN Urine Mucus 0 SEEN Urine Test Negative Radiography Diagnostic Testing: Clinical Impression(s) from Imaging Studies Abdomen/Pelvis CT 07/03/23 19:02 IMPRESSION: Colonic diverticulosis. No obstruction or abscess. Contracted gallbladder. No biliary dilatation. Electronically Signed: Avery Haque MD at 20:47 EST , <Dr. Khang James MD - Last Filed: 07/03/23 21:26> [facility] Narrative Medical decision making narrative: Patient has bilateral pelvic pain and low back pain. She appears uncomfortable but nontoxic. HR is 119 with otherwise normal vital signs. She Her abdomen is soft and she reports tenderness when I palpate both lower pelvic regions. She states it makes her back hurt more. She has no reproducible tenderness of the spine, flank or back. No skin changes. Labs show white count 12.0. Mild hypokalemia at 3.4 which was replaced p.o., glucose 136, otherwise normal. Urinalysis and test is negative. CT scan shows no acute findings. Gallbladder is contracted but she has no RUQ tenderness or abnormalities that would suggest acute gallbladder process. After IV Toradol she is feeling improved and comfortable going home, discussed taking [id number] analgesia and follow-up with her PCP. She was discharged in stable condition. Differential: Appendicitis, diverticulitis, ovarian etiology, acute on chronic low back pain I have personally performed a face to face assessment of the patient and have reviewed the CORIE Note. I performed a substantive portion of the visit including all aspects of the following. My hi findings include: History is remarkable for acute bilateral low back pain and bilateral lower quadrant abdominal pain. She appears uncomfortable but not ill or toxic. She is tachycardic. She denies fever or chills. She denies vomiting or diarrhea. She denies blood in her urine. She denies discomfort with urination. There is no history of trauma. Exam is remarkable for her. Uncomfortable. Patient has abdominal pain out of proportion. There is also back pain out of proportion to stimulus. There is no evidence of trauma. Equivocal guarding. There is no peritoneal findings. Bowel sounds are present but diminished. There is no hepatosplenomegaly. There is no palp pulsatile mass. There is no abdominal bruit. There is no CVA tenderness noted. Medical Decision Making differential diagnosis would include abdominal pain of unknown etiology, inflammatory bowel, gynecologic pathology. Patient has slight elevated white count. Differential is normal. UA is negative. Basic metabolic panel is normal. Will obtain CT because of the elevated white count. CT was reviewed by me was interpreted radiologist and there is no acute findings. In my opinion I thought there was increased fecal stasis. Other additions or changes: [None] Lab Data Labs: Laboratory Results - last 24 hr 07/03/23 07/03/23 18:00 18:50 WBC 12.0 H RBC 4.48 Hgb 13.4 Hct 39.9 MCV 89.1 MCH 29.9 MCHC 33.6 RDW Std Deviation 38.8 RDW Coeff of [place] 11.9 Plt Count 419 MPV 8.8 Immature Gran % (Auto) 0.400 Neut % (Auto) 80.9 H Lymph % (Auto) 14.9 L [place] % (Auto) 3.4 Eos % (Auto) 0.2 Baso % (Auto) 0.2 Absolute Neuts (auto) 9.7 H Absolute Lymphs (auto) 1.78 Nucleated RBC % 0 Sodium 138 Potassium 3.4 L Chloride 105 Carbon Dioxide 28.0 Anion Gap 5 BUN 8 Creatinine 0.78 Est GFR (MDRD) Af Amer 107 Est GFR (MDRD) Non-Af 89 BUN/Creatinine Ratio 10.3 Glucose 136 H Calcium 9.3 Urine Color Yellow Urine Clarity Clear Urine pH 7.0 Ur Specific [place] [employer] 1.010 Urine Protein 15 H Urine Glucose (UA) Normal Urine Ketones Negative Urine Occult Blood Negative Urine Nitrite Negative Urine Bilirubin Negative Urine Urobilinogen Normal Ur Leukocyte Esterase Negative Urine RBC 0 SEEN Urine WBC 0 SEEN Ur Squamous Epith Cells 0-5 SEEN Urine Bacteria 0 SEEN Urine Mucus 0 SEEN Urine Test Negative Radiography Diagnostic Testing: Clinical Impression(s) from Imaging Studies Abdomen/Pelvis CT 07/03/23 19:02 IMPRESSION: Colonic diverticulosis. No obstruction or abscess. Contracted gallbladder. No biliary dilatation. Electronically Signed: Avery Haque MD at 20:47 EST , Discharge Plan Triage Chief Complaint: Back ED Midlevel Provider: Sabiha Medeiros ED Provider: Khang James Dx/Rx/DC Orders Clinical Impression: Abdominal pain of unknown etiology, Sinus tachycardia, Leukocytosis, Acute bilateral low back pain Instructions: Abdominal Pain, ED Back Pain (Acute or Chronic) Prescriptions: No Action ferrous sulfate [iron] 325 MG tablet 1 tab PO DAILY Pnv 29-1 Tablet 1 TAB 1 tab PO DAILY acetaminophen 500 MG tablet 1,000 mg PO Q8H PRN PRN (Reason: Mild Pain (-08/19)) Qty: 15 0RF ibuprofen 600 MG tablet 600 mg PO Q6H PRN PRN (Reason: Mild Pain (-08/19)) Qty: 30 0RF amoxicillin-pot clavulanate 875 MG tablet 875 mg PO Q12H Qty: 20 0RF Primary Care Provider: Nasim Walsh Referrals: Nasim Walsh MD [Primary Care Provider] - Activity Restrictions/Additional Instructions: Take Tylenol ibuprofen as needed and follow-up with your doctor Disposition Disposition: Home, Self Care Discharge Date/Time: 07/03/23 21:25
[2023-07-03 18:07] LABS: Absolute Lymphocyte Count 1.78 X10^3/uL (0.83-4.51); Absolute Neutrophil Count 9.7 X10^3/uL (2.0-7.7); Basophil# 0.02 X10^3/uL; Basophil% 0.2 % (0-1); Eosinophil# 0.02 X10^3/uL; Eosinophils% 0.2 % (0-5); Hematocrit 39.9 % (37-47); Hemoglobin 13.4 g/dL (12.0-15.0); Lymphocyte # 1.78 X10^3/ul (0.83-4.51); Lymphocyte % 14.9 % (19-41); Mean Corp Hgb Conc 33.6 g/dL (32-36); Mean Corpuscular Hgb 29.9 pg (27.0-32.0); Mean Corpuscular Volume 89.1 fL (81-99); Mean Platelet Vol. 8.8 fl (6.2-12.0); Monocyte# 0.41 X10^3/uL; Monocyte% 3.4 % (0-10); NRBC Flagged by Analyzer 0 % (0-5); Neutrophil # 9.68 X10^3/uL (2.7-7.7); Neutrophil % 80.9 % (47-70); Platelet Count 419 K/mm3 (150-450); RBC Distribution Width CV 11.9 % (11.6-14.6); RBC Distribution Width SD 38.8 fl (35.1-43.9); Red Blood Count 4.48 M/mm3 (4.2-5.4)
[2023-07-03] MEDS: Ketorolac 30 MG/ML Syringe IV (18:20)
[2023-07-03 18:21] LABS: Anion Gap 5 (5-15); BUN 8 mg/dL (7-18); BUN/Creat Ratio 10.3 RATIO (10-20); Calcium,Total 9.3 mg/dL (8.5-10.1); Chloride 105 mmol/L (98-107); Creatinine, Serum 0.78 mg/dL (0.55-1.02); EST Glomerular Filtration Rate 89 mL/min (>60); Est Glom Filt Rate - Afr Amer 107 mL/min (>60); Glucose 136 mg/dL (74-106); Potassium 3.4 mmol/L (3.5-5.1); Sodium Level 138 mmol/L (136-145)
--- OUTSIDE RECORDS SUMMARY | 2023-07-03 18:22 | XMS RPT_ITS | CCD ---
Author Name Unknown Address [address] [facility] [address] [place] [address] Organization [facility] Care Team Providers Care Adult Daycare Coordinator Name Role Phone Nico LAL, Nasim Law Primary Care Provider [phone] NASIM COLON Primary Care Unavailable COLON, NASIM Law Referring Unavailable COLON, NASIM Law Attending Unavailable COLON, NASIM Law Primary Care Unavailable COLON, NASIM Law Primary Care Unavailable ALCIDES MANCILLA Referring Unavailable COLON, NASIM Law Primary Care Unavailable ALCIDES MANCILLA Attending Unavailable COLON, NASIM Law Primary Care Unavailable DAVINA BHATTI Attending Unavailable COLON, NASIM Law Referring Unavailable COLON, NASIM Law Primary Care Unavailable COLON, NASIM Law Attending Unavailable COLON, NASIM Law Primary Care Unavailable SHERIF DANGELO Referring Unavailable COLON, NASIM Law Primary Care Unavailable COLON, NASIM Law Attending Unavailable COLON, NASIM Law Primary Care Unavailable COLON, NASIM Law Referring Unavailable COLON, NASIM Law Primary Care Unavailable COLON, NASIM Law Referring Unavailable COLON, NASIM Law Primary Care Unavailable COLON, NASIM Law Referring Unavailable COLON, NASIM Law Primary Care Unavailable Nasim Colon MD Primary Care Provider [phone] Allergies Allergy Classification Reported Allergen(s) Allergy Type Date of Onset Reaction(s) Facility (8 sources) guaiFENesin; Translations: [GUAIFENESIN] Drug Allergy 11-19-2005 Rash [facility] Work Phone: (12 sources) predniSONE; Translations: [PREDNISONE] Drug Allergy 11-19-2005 Hives [facility] Work Phone: (4 sources) traMADol; Translations: [TRAMADOL] Drug Allergy 11-28-2016 GI Upset, Vomiting [facility] Work Phone: Medications Current Medications Medication Drug Class(es) Dates Sig (Normalized) Sig (Original) cholecalciferol 0.05 mg oral capsule (2 sources) Vitamin D Start: 11-08-2022 End: 02-06-2023 take 1 capsule by mouth once daily Cholecalciferol, Vitamin D3, 50 mcg (2,000 unit) cap Indications: Vitamin D deficiency Take 1 capsule by mouth once daily. 100 capsule 0 11/08/2022 02/06/2023 Active Completed/Discontinued Medications Medication Drug Class(es) Dates Sig (Normalized) Sig (Original) [id number] 200 actuat albuterol 0.09 mg/actuat metered dose inhaler (4 sources) beta2-Adrenergic Agonist Start: 09-18-2017 End: 04-12-2022 take 2 puff(s) by inhalation every four hours as needed for wheezing albuterol HFA (VENTOLIN HFA) 90 mcg/actuation inhaler Inhale 2 Puffs as instructed every 4 hours as needed for Wheezing/Shortness of Breath. 0 09/18/2017 04/12/2022 Discontinued Problems Active Problems Problem Classification Problem Date Documented Date Episodic/Chronic Allergic reactions (9 sources) Atopic dermatitis; Translations: [Atopic dermatitis, unspecified] Onset: 10-15-2015 06-07-2021 Chronic Contraceptive and procreative management (3 sources) Patient encounter status; Translations: [Encounter for initial prescription of implantable subdermal contraceptive] Episodic Genitourinary symptoms and ill-defined conditions (1 source) Genuine stress incontinence; Translations: [Stress incontinence (female) (male)] Chronic Headache; including migraine (3 sources) Migraine; Translations: [Periodic headache syndromes in child or adult, not intractable] Onset: 10-15-2015 10-15-2015 Chronic Immunizations and screening for infectious disease (3 sources) Needs influenza immunization; Translations: [Encounter for immunization] Onset: 10-18-2022 Episodic Nutritional deficiencies (3 sources) Vitamin D deficiency; Translations: [Vitamin D deficiency, unspecified] Onset: 12-21-2022 Chronic Other female genital disorders (1 source) Deep pain on intercourse; Translations: [Deep dyspareunia] Chronic Other lower respiratory disease (1 source) Pleuritic pain; Translations: [Pleurodynia] Episodic Other nervous system disorders (1 source) Other chronic pain; Translations: [Chronic bilateral low back pain without sciatica] Onset: 10-17-2022 Chronic Other non-traumatic joint disorders (1 source) Pain in right hip joint; Translations: [Pain in right hip] Episodic Spondylosis; intervertebral disc disorders; other back problems (3 sources) Disorder of lumbar disc; Translations: [Other intervertebral disc displacement, lumbar region] Onset: 02-09-2018 05-01-2018 Chronic Spondylosis; intervertebral disc disorders; other back problems (20 sources) Neck pain; Translations: [Cervicalgia] Onset: 02-09-2018 Episodic Substance-related disorders (12 sources) Tobacco user; Translations: [Nicotine dependence, unspecified, uncomplicated] Onset: 10-15-2015 10-15-2015 Chronic Unclassified (1 source) Chronic bilateral low back pain without sciatica; Translations: [Chronic bilateral low back pain without sciatica] Onset: 10-17-2022 Past or Other Problems Problem Classification Problem Date Documented Da te Episodic/Chronic Abdominal pain (4 sources) Pain in female pelvis; Translations: [Pelvic and perineal pain] Onset: 04-12-2022 Episodic Other complications of (3 sources) Tobacco smoking in mother complicating ; Translations: [Smoking (tobacco) complicating , unspecified trimester] Onset: 02-09-2018 02-09-2018 Episodic Other lower respiratory disease (1 source) Pleurodynia; Translations: [Pleurodynia] Onset: 04-14-2022 Episodic Pleurisy; pneumothorax; pulmonary collapse (2 sources) Pleurisy; Translations: [Pleurisy] Onset: 04-12-2022 Episodic Results Test Name Value Interpretation Reference Range Facil ity Vital Signs Date Time Vital Sign Value Performing Clinician Kunal miner 12-21-2022 10:54-0400 Body weight 68.95 kg Davina Older ROLL CARRIER.TRACK INSPECTING SUPERVISOR Work Phone: [facility] 12-21-2022 10:54-0400 Diastolic blood pressure 82 mm[Hg] Davina Older ROLL CARRIER.TRACK INSPECTING SUPERVISOR Work Phone: [facility] 12-21-2022 10:54-0400 Heart rate 82 /min Davina Older ROLL CARRIER.TRACK INSPECTING SUPERVISOR Work Phone: [facility] 12-21-2022 10:54-0400 Respiratory rate 14 /min Davina Older ROLL CARRIER.TRACK INSPECTING SUPERVISOR Work Phone: [facility] 12-21-2022 10:54-0400 Systolic blood pressure 112 mm[Hg] Davina Older ROLL CARRIER.TRACK INSPECTING SUPERVISOR Work Phone: [facility] 10-17-2022 16:06-0400 Body height 163.2 cm Nasim Colon MD Work Phone: [facility] 10-17-2022 16:06-0400 Body weight 65.77 kg Nasim Colon MD Work Phone: [facility] 10-17-2022 16:06-0400 Diastolic blood pressure 68 mm[Hg] Nasim Colon MD Work Phone: [facility] 10-17-2022 16:06-0400 Heart rate 96 /min Nasim Colon MD Work Phone: [facility] 10-17-2022 16:06-0400 Respiratory rate 16 /min Nasim Colon MD Work Phone: [facility] 10-17-2022 16:06-0400 Systolic blood pressure 108 mm[Hg] Nasim Colon MD Work Phone: [facility] 04-12-2022 11:04-0400 Body temperature 97.5 [degF] Nasim Colon MD Work Phone: [facility] 04-12-2022 11:04-0400 Body weight 63.5 kg Nasim Colon MD Work Phone: [facility] 04-12-2022 11:04-0400 Diastolic blood pressure 70 mm[Hg] Nasim Colon MD Work Phone: [facility] 04-12-2022 11:04-0400 Heart rate 104 /min Naism Colon MD Work Phone: [facility] 04-12-2022 11:04-0400 Respiratory rate 20 /min Nasim Colon MD Work Phone: [facility] 04-12-2022 11:04-0400 SaO2% (BldA) [Mass fraction] 98 % Nasim Colon MD Work Phone: [facility] 04-12-2022 11:04-0400 Systolic blood pressure 110 mm[Hg] Nasim Colon MD Work Phone: [facility] 09-17-2021 13:14-0400 Body height 165.1 cm Danyell Bianchi MD Work Phone: [facility] 09-17-2021 13:14-0400 Body weight 68.31 kg Danyell Bianchi MD Work Phone: [facility] 09-17-2021 13:14-0400 Diastolic blood pressure 70 mm[Hg] Danyell Bianchi MD Work Phone: [facility] 09-17-2021 13:14-0400 Systolic blood pressure 108 mm[Hg] Danyell Bianchi MD Work Phone: [facility] Encounters Encounter Date Encounter Type Care Provider Facility Start: 12-21-2022 End: 12-22-2022 ambulatory NASIM COLON Facility:[facility] Start: 12-21-2022 End: 12-21-2022 Patient encounter procedure Davinadeborah Bhatti ROLL CARRIER.TRACK INSPECTING SUPERVISOR Work Phone: [facility] [place] Procedures Date Procedure Procedure Detail Performing Clinician Start: 08-03-2022 Mri spinal canal cer vical w/o contrast vall Sherif Dangelo ROLL CARRIER.TRACK INSPECTING SUPERVISOR Work Phone: Start: 04-12-2022 INFLUENZA VACCINE QUADRIVALENT 6 MO - 64 YRS IM Nasim Colon MD Work Phone: Start: 09-17-2021 Urnls dip stick/tabl et rgnt auto w/o microscopy Danyell Bianchi MD Work Phone: Start: 07-05-2017 Adult depression scr eening assessment Danyell Bianchi MD Work Phone: Plan of Treatment Date Care Activity Detail Author Start: 11-06-2029 Urine microalbumin profile DTa P,Tdap,Td Vaccine (4 - Td or Tdap) [facility] Start: 08-09-2028 Urine microalbumin profile DTA P,TDAP,TD (3 - Td or Tdap) [facility] Start: 10-18-2023 COVID-19 VACCINE (#1) COVID-19 VACCI NE (#1) [facility] Immunizations Immunization Date Immunization Notes Care Provider Fa cility 12-21-2022 hepatitis B vaccine, adult dosage Davina Older ROLL CARRIER.TRACK INSPECTING SUPERVISOR Work Phone: [facility] 12-21-2022 hepatitis B vaccine, unspecified formulation Davina Older ROLL CARRIER.TRACK INSPECTING SUPERVISOR Work Phone: [facility] 10-17-2022 pneumococcal Conjugate, unspecified formulation Nasim Colon MD Work Phone: [facility] Work Phone: 10-17-2022 Hepatitis B vaccine (recombinant), CpG adjuvanted Nasim Colon MD Work Phone: [facility] Work Phone: 10-17-2022 pneumococcal (PCV20) vaccine, 20 valent (PREVNAR 20) Nasim Colon MD Work Phone: [facility] Work Phone: 10-17-2022 hepatitis B vaccine, unspecified formulation Nasim Colon MD Work Phone: [facility] 04-12-2022 influenza, injectabl e, quadrivalent, contains preservative Nasim Colon MD Work Phone: [facility] Work Phone: 04-12-2022 influenza virus vaccine, unspecified formulation Mri (I-Stat/1.5t) Work Phone: [facility] 04-24-2020 influenza, injectabl e, quadrivalent, contains preservative Danyell Bianchi MD Work Phone: [facility] Work Phone: 08-09-2018 tetanus toxoid, reduced diphtheria toxoid, and acellular pertussis vaccine, adsorbed Danyell Bianchi MD Work Phone: [facility] 03-08-2018 influenza, injectabl e, quadrivalent, contains preservative Danyell Bianchi MD Work Phone: [facility] 10-15-2015 tetanus toxoid, reduced diphtheria toxoid, and acellular pertussis vaccine, adsorbed Daynell Bianchi MD Work Phone: [facility] Payers Date Payer Category Payer Private Health Insurance [employer] PPO [id number] 2022-Present [phone] [address] [place] MESSER [phone] PPO [id number] 2022 Private Health Insurance QL [id number] 2021 Unknown [facility] PPO [employer] [id number] 2021-Present [id number] [place] [id number] PPO [id number] 2021 Unknown [id number] 2021 Unknown [id number] Social History Date Type Detail Facility Start: 02-09-2018 End: 04-12-2022 Tobacco smoking status OHIS Smokes tobacco daily [facility] History of tobacco use Cigarette Smoker C [facility] Start: 09-17-2021 End: 04-12-2022 Alcohol intake Current drinker of alcohol (finding) [facility] Start: 10-15-2015 History SDOH Alcohol Comment rare [facility] Start: 1985 Sex Assigned At Not on file [facility] Start: 09-07-2021 End: 04-12-2022 Exposure to SARS-CoV-2 (event) Not sure [facility] Work Phone: Start: 1985 Sex Assigned At Female [facility] Start: 02-09-2018 End: 07-07-2022 Cigarettes smoked current (pack per day) - Reported 0.5 [facility] Start: 02-09-2018 End: 04-12-2022 Tobacco use and exposure Smokeless tobacco non-user [facility] Start: 04-15-2022 End: 10-10-2022 History SDOH Alcohol Frequency 1 [facility] Start: 04-15-2022 End: 10-10-2022 History SDOH Alcohol Std Drinks 0 [facility] Start: 04-15-2022 End: 10-10-2022 History SDOH Social Connections Phone 5 [facility] Start: 04-15-2022 End: 10-10-2022 History SDOH Social Connections Get Together 2 [facility] Start: 04-15-2022 End: 10-10-2022 History SDOH Social Connections Roman Catholic 98 [facility] Start: 04-15-2022 End: 10-10-2022 History SDOH Social Connections Living 3 [facility] Start: 04-15-2022 End: 10-10-2022 History SDOH Physical Activity DPW 4 [facility] Start: 04-15-2022 End: 10-10-2022 History SDOH Physical Activity MPS 6 [facility] Start: 10-17-2022 End: 12-21-2022 Alcohol intake Ex-drinker (finding) [facility] Start: 07-07-2022 End: 10-10-2022 Social connection and isolation panel [facility] How often do you get together with friends or relatives? Patient refused [facility] Do you belong to any clubs or organizations such as holiness groups, unions, fraternal or athletic groups, or school groups? No [facility] Are you now , , , , never or living with a partner? [facility] How often to you hav e a drink containing alcohol? Never [facility] How hard is it for y ou to pay for the very basics like food, housing, medical care, and heating Not very hard [facility] Do you feel stress - tense, restless, nervous, or anxious, or unable to sleep at night because your mind is troubled all the time - these days [OSQ] Only a little [facility] (I/We) worried ena er (my/our) food would run out before (I/we) got money to buy more. Never true [facility] Start: 12-30-2021 Gender identity Identifies as female gender (finding) [facility] Start: 12-30-2021 Sexual orientation Heterosexual (finding) [facility] Clinical Notes 07-13-2018 to 12-21-2022 Davina Bhatti APRN.RSOMERY - 12/21/2022 11:02 AM EDTTelephone Encounter - Nasim Colon MD - 11/08/2022 9:01 AM EDAzeem Colon MD - 10/17/2022 4:44 PM EDTPatient Instructions Note Date & Type Note Facility 12-21-2022 Note HNO ID: [id number] Author: Davina Bhatti APRN.ROSMERY Service: ? Author Type: Nurse Practitioner Type: Progress Notes Filed: 12/21/2022 12:22 PM Note Text: CC: Patient presents with: 2 month follow up - hep b vaccine HPI Giovanna Mcintyre is a 37 year old female who presents today for above. Patient was last seen two months ago. Reported chronic low back pain with radiation to both legs. Previous treatments included PT, NSAID's, Flexeril and injection without any relief. She was started on Cymbalta 20 mg daily however patient never picked up prescription. Vitamin D was low, she is taking daily Vitamin D supplement. SED and CRP normal. Patient feels there has been some improvement with Vitamin D but overall pain is persistent and bothersome. She is now experiencing pain in the upper back as well associated with numbness/tingling in both arms at night. She can feel a knot in the left shoulder blade that is very tender. She was afraid to start the Cymbalta because it is an antidepressant and didn't want to become addicted. No new or worsening symptoms. REVIEW OF SYSTEMS See HPI PAST MEDICAL HISTORY Diagnosis Date Anemia complicating , third trimester 07/02/2018 Atopic dermatitis and related condition 10/15/2015 Dr. Strauss Cervicalgia 04/12/2022 Chronic low back pain with bilateral sciatica 12/12/2017 Gestational diabetes mellitus, class A1 07/02/2018 Gestational hypertension without significant proteinuria, antepartum 07/13/2018 History of heart murmur in childhood Periodic headache syndrome, not intractable 10/15/2015 Tobacco use disorder 10/15/2015 PAST SURGICAL HISTORY Procedure Laterality Date [facility] (INCOMPLETE AB), ANY TRIMESTER 07/03/2015 [facility] for incomplete ab TONSILLECTOMY PRIMARY/SECONDARY ALLERGIES Tramadol and Prednisone MEDICATIONS Cholecalciferol, Vitamin D3, 50 mcg (2,000 unit) cap Take 1 capsule by mouth once daily. clobetasol (TEMOVATE) 0.05 % ointment Apply to affected area on legs twice daily as needed. Use 2 weeks on 1 week off. Not for face, armpits or groin DULoxetine (CYMBALTA) 20 mg capsule Take 1 capsule by mouth once daily. etonogestrel (NEXPLANON) 68 mg impl subdermal implant 68 mg by SUBDERMAL route. FAMILY HISTORY Problem Relation Age of Onset Diabetes Mother Arthritis Father multiple surgeries Thyroid Brother Cancer Maternal Grandmother Cancer Maternal Grandfather lung cancer Cancer Paternal Grandmother skin cancer Coronary Artery Disease Paternal Grandfather 36 Breast Cancer Paternal Aunt Social History Tobacco Use Smoking status: Every Day Packs/day: 0.50 Years: 20.00 Total pack years: 10.00 Types: Cigarettes Smokeless tobacco: Never Vaping Use Vaping Use: Former Substance Use Topics Alcohol use: Not Currently Drug use: No PHYSICAL EXAM BP 112/82 Pulse 82 Resp 14 Wt 68.9 kg (152 lb) LMP 04/01/2022 (Exact Date) BMI 25.89 kg/m? General Appearance: well appearing, in no acute distress, alert Pysch: affect is anxious Back: no deformities. Mild tenderness with palpation of thoracic and lumbar spine spine and with palpation of left scapula ASSESSMENT/PLAN: 1. Upper back pain - ICD9: 724.5, ICD10: M54.9 (primary diagnosis) Differentials include myofascial pain, DDD, muscle strain - Ice for localized tenderness - Warm moist heat for 20 min three times a day - start Cymbalta - consider massage therapy, she will check with insurance - follow-up in 2 months or sooner if needed 2. Chronic bilateral low back pain without sciatica - ICD9: 724.2, 338.29, ICD10: M54.50, G89.29 Secondary to DDD and herniated disc - start DULOXETINE 20 MG CAPSULE,DELAYED RELEASE - follow-up in two months 3. Cervicalgia - ICD9: 723.1, ICD10: M54.2 As above - DULOXETINE 20 MG CAPSULE,DELAYED RELEASE 4. Vitamin D deficiency - ICD9: 268.9, ICD10: E55.9 Recheck in 2 months - VITAMIN D 25 HYDROXY Prescription instructions reviewed with patient as applicable. Potential red flag symptoms discussed with the patient. Reviewed appropriate action plan to take if red flag symptoms occur. Patient agreeable to treatment plan. Davina Bhatti, ROLL CARRIER.TRACK INSPECTING SUPERVISOR [facility] 12-21-2022 History of Presen t illness Narrative CC: Patient presents with: 2 month follow up - hep b vaccine HPI Giovanna Mcintyre is a 37 year old female who presents today for above. Patient was last seen two months ago. Reported chronic low back pain with radiation to both legs. Previous treatments included PT, NSAID's, Flexeril and injection without any relief. She was started on Cymbalta 20 mg daily however patient never picked up prescription. Vitamin D was low, she is taking daily Vitamin D supplement. SED and CRP normal. Patient feels there has been some improvement with Vitamin D but overall pain is persistent and bothersome. She is now experiencing pain in the upper back as well associated with numbness/tingling in both arms at night. She can feel a knot in the left shoulder blade that is very tender. She was afraid to start the Cymbalta because it is an antidepressant and didn't want to become addicted. No new or worsening symptoms. REVIEW OF SYSTEMS See HPI PAST MEDICAL HISTORY Diagnosis Date Anemia complicating , third trimester 07/02/2018 Atopic dermatitis and related condition 10/15/2015 Dr. Strauss Cervicalgia 04/12/2022 Chronic low back pain with bilateral sciatica 12/12/2017 Gestational diabetes mellitus, class A1 07/02/2018 Gestational hypertension without significant proteinuria, antepartum 07/13/2018 History of heart murmur in childhood Periodic headache syndrome, not intractable 10/15/2015 Tobacco use disorder 10/15/2015 PAST SURGICAL HISTORY Procedure Laterality Date [facility] (INCOMPLETE AB), ANY TRIMESTER 07/03/2015 [facility] for incomplete ab TONSILLECTOMY PRIMARY/SECONDARY <AGE 12 2000 ALLERGIES Tramadol and Prednisone MEDICATIONS Cholecalciferol, Vitamin D3, 50 mcg (2,000 unit) cap Take 1 capsule by mouth once daily. clobetasol (TEMOVATE) 0.05 % ointment Apply to affected area on legs twice daily as needed. Use 2 weeks on 1 week off. Not for face, armpits or groin DULoxetine (CYMBALTA) 20 mg capsule Take 1 capsule by mouth once daily. etonogestrel (NEXPLANON) 68 mg impl subdermal implant 68 mg by SUBDERMAL route. FAMILY HISTORY Problem Relation Age of Onset Diabetes Mother Arthritis Father multiple surgeries Thyroid Brother Cancer Maternal Grandmother Cancer Maternal Grandfather lung cancer Cancer Paternal Grandmother skin cancer Coronary Artery Disease Paternal Grandfather 36 Breast Cancer Paternal Aunt Social History Tobacco Use Smoking status: Every Day Packs/day: 0.50 Years: 20.00 Total pack years: 10.00 Types: Cigarettes Smokeless tobacco: Never Vaping Use Vaping Use: Former Substance Use Topics Alcohol use: Not Currently Drug use: No PHYSICAL EXAM BP 112/82 Pulse 82 Resp 14 Wt 68.9 kg (152 lb) LMP 04/01/2022 (Exact Date) BMI 25.89 kg/m General Appearance: well appearing, in no acute distress, alert Pysch: affect is anxious Back: no deformities. Mild tenderness with palpation of thoracic and lumbar spine spine and with palpation of left scapula ASSESSMENT/PLAN: 1. Upper back pain - ICD9: 724.5, ICD10: M54.9 (primary diagnosis) Differentials include myofascial pain, DDD, muscle strain - Ice for localized tenderness - Warm moist heat for 20 min three times a day - start Cymbalta - consider massage therapy, she will check with insurance - follow-up in 2 months or sooner if needed 2. Chronic bilateral low back pain without sciatica - ICD9: 724.2, 338.29, ICD10: M54.50, G89.29 Secondary to DDD and herniated disc - start DULOXETINE 20 MG CAPSULE,DELAYED RELEASE - follow-up in two months 3. Cervicalgia - ICD9: 723.1, ICD10: M54.2 As above - DULOXETINE 20 MG CAPSULE,DELAYED RELEASE 4. Vitamin D deficiency - ICD9: 268.9, ICD10: E55.9 Recheck in 2 months - VITAMIN D 25 HYDROXY Prescription instructions reviewed with patient as applicable. Potential red flag symptoms discussed with the patient. Reviewed appropriate action plan to take if red flag symptoms occur. Patient agreeable to treatment plan. Davina Bhatti APRN.CNP documented in this encounter [facility] 11-08-2022 Miscellaneous Notes This patient gave consent to this Medical Advice Message and is aware that it may result in a bill to their insurance, as well as the possibility of receiving a bill for a copay and/or deductible. They are an established patient, but are not seeking information exclusively about a problem treated during an in person or video visit in the last seven days. I did not recommend an in person or video visit within seven days of my reply. See the [employer] message reply for my assessment and plan. I spent a total of 7 minutes reviewing the patient's prior medical records and current request for medical advice, prescribing medications or ordering tests (if applicable), replying to the patient, and documenting the encounter. documented in this encounter [facility] 10-17-2022 Note HNO ID: [id number] Author: Nasim Colon MD Service: ? Author Type: Physician Type: Progress Notes Filed: 10/18/2022 8:09 AM Note Text: This note was created using [employer]. Subjective Patient presents with: Yearly Exam Giovanna Mcintyre was here for above. She essentially reestablished care here last April. Chronic pain issues were the predominant concern. Her activities of daily living were impacted, as she has to recover from chronic pain with any activity with her children. Patient reports low back pain chronic lower back pain. The pain is located in lower back either side with radiation to both legs and feet and described as aching. Pain is worse with first thing in the morning, with tightness and soreness, walking, sports equipment racker, basically any activity, and better with ice pack, heating pad, and resting. Tylenol and Advil did not help. Over the years, various NSAIDs and muscle relaxers did not help. Medications tried previously did not help. Her right hip was now also bothersome. She saw Dr. Mancilla for pain management in [facility] for the initial consultation last December. There was no follow up. She had seen [facility] for low back pain in the past and was here with an MRI of her lumbar spine from 2018 showing mild changes in discs, facets, and spinal canal. She recalled having an injection once presumably by their pain specialist. She sees [facility]. Review of Systems Constitutional: Negative for chills, fatigue, fever and unexpected weight change. HENT: Negative. Eyes: Negative for visual disturbance. Respiratory: Negative for cough, chest tightness, shortness of breath and wheezing. Cardiovascular: Negative for chest pain, palpitations and leg swelling. Gastrointestinal: Negative for abdominal pain, constipation, diarrhea, nausea and vomiting. Genitourinary: Negative for difficulty urinating and dysuria. Musculoskeletal: Positive for arthralgias, back pain, neck pain and neck stiffness. Negative for joint swelling and myalgias. Skin: Positive for rash. Neurological: Positive for headaches. Negative for dizziness, tremors, weakness, light-headedness and numbness. Psychiatric/Behavioral: Negative for dysphoric mood, self-injury and suicidal ideas. The patient is not nervous/anxious. PAST MEDICAL HISTORY Diagnosis Date Anemia complicating , third trimester 07/02/2018 Atopic dermatitis and related condition 10/15/2015 Dr. Strauss Cervicalgia 04/12/2022 Chronic low back pain with bilateral sciatica 12/12/2017 Gestational diabetes mellitus, class A1 07/02/2018 Gestational hypertension without significant proteinuria, antepartum 07/13/2018 History of heart murmur in childhood Periodic headache syndrome, not intractable 10/15/2015 Tobacco use disorder 10/15/2015 PAST SURGICAL HISTORY Procedure Laterality Date DANIN (INCOMPLETE AB), ANY TRIMESTER 07/03/2015 [facility] for incomplete ab TONSILLECTOMY PRIMARY/SECONDARY FAMILY HISTORY Problem Relation Age of Onset Diabetes Mother Arthritis Father multiple surgeries Thyroid Brother Cancer Maternal Grandmother Cancer Maternal Grandfather lung cancer Cancer Paternal Grandmother skin cancer Coronary Artery Disease Paternal Grandfather 36 Breast Cancer Paternal Aunt Social History Tobacco Use Smoking status: Every Day Packs/day: 0.50 Years: 20.00 Pack years: 10.00 Types: Cigarettes Smokeless tobacco: Never Vaping Use Vaping Use: Former Substance Use Topics Alcohol use: Not Currently Drug use: No Immunization History Administered Date(s) Administered influenza (IIV4) vaccine, age 6 mo - 64 yr, quadrivalent (AFLURIA, FLULAVAL, FLUZONE) 03/08/2018 04/24/2020 04/12/2022 tetanus diphtheria pertussis (Tdap) vaccine, age 7+ yr (ADACEL, BOOSTRIX) 10/15/2015 08/09/2018 ALLERGIES Allergen Reactions Tramadol GI Upset, Vomiting Prednisone Hives Current Outpatient Medications Medication Sig etonogestrel (NEXPLANON) 68 mg impl subdermal implant 68 mg by SUBDERMAL route. triamcinolone acetonide (KENALOG) 0.1 % cream Apply 1 application to affected area twice daily. Apply sparingly to area for rash of left ankle. DULoxetine (CYMBALTA) 20 mg capsule Take 1 capsule by mouth once daily. No current facility-administered medications for this visit. Objective BP 108/68 (BP Site: Left Arm, BP Position: Sitting, BP Cuff Size: Large Adult) Pulse 96 Resp 16 Ht 163.2 cm (5' 4.25 ) Wt 65.8 kg (145 lb) LMP 04/01/2022 (Exact Date) BMI 24.70 kg/m? Physical Exam Constitutional: General: She is not in acute distress. Appearance: She is not ill-appearing. HENT: Head: Normocephalic. Eyes: General: No scleral icterus. Conjunctiva/sclera: Conjunctivae normal. Cardiovascular: Rate and Rhythm: Normal rate and regular rhythm. Heart sounds: No murmur heard. No gallop. Pulmonary: Effort: No respiratory dist (more content not included)... [facility] 10-17-2022 History of Presen t illness Narrative This note was created using L3riter. Subjective Patient presents with: Yearly Exam Giovanna Mcintyre was here for above. She essentially reestablished care here last April. Chronic pain issues were the predominant concern. Her activities of daily living were impacted, as she has to recover from chronic pain with any activity with her children. Patient reports low back pain chronic lower back pain. The pain is located in lower back either side with radiation to both legs and feet and described as aching. Pain is worse with first thing in the morning, with tightness and soreness, walking, sports equipment racker, basically any activity, and better with ice pack, heating pad, and resting. Tylenol and Advil did not help. Over the years, various NSAIDs and muscle relaxers did not help. Medications tried previously did not help. Her right hip was now also bothersome. She saw Dr. Mancilla for pain management in [facility] for the initial consultation last December. There was no follow up. She had seen [facility] for low back pain in the past and was here with an MRI of her lumbar spine from 2018 showing mild changes in discs, facets, and spinal canal. She recalled having an injection once presumably by their pain specialist. She sees [facility]. Review of Systems Constitutional: Negative for chills, fatigue, fever and unexpected weight change. HENT: Negative. Eyes: Negative for visual disturbance. Respiratory: Negative for cough, chest tightness, shortness of breath and wheezing. Cardiovascular: Negative for chest pain, palpitations and leg swelling. Gastrointestinal: Negative for abdominal pain, constipation, diarrhea, nausea and vomiting. Genitourinary: Negative for difficulty urinating and dysuria. Musculoskeletal: Positive for arthralgias, back pain, neck pain and neck stiffness. Negative for joint swelling and myalgias. Skin: Positive for rash. Neurological: Positive for headaches. Negative for dizziness, tremors, weakness, light-headedness and numbness. Psychiatric/Behavioral: Negative for dysphoric mood, self-injury and suicidal ideas. The patient is not nervous/anxious. PAST MEDICAL HISTORY Diagnosis Date Anemia complicating , third trimester 07/02/2018 Atopic dermatitis and related condition 10/15/2015 Dr. Strauss Cervicalgia 04/12/2022 Chronic low back pain with bilateral sciatica 12/12/2017 Gestational diabetes mellitus, class A1 07/02/2018 Gestational hypertension without significant proteinuria, antepartum 07/13/2018 History of heart murmur in childhood Periodic headache syndrome, not intractable 10/15/2015 Tobacco use disorder 10/15/2015 PAST SURGICAL HISTORY Procedure Laterality Date D&C (INCOMPLETE AB), ANY TRIMESTER 07/03/2015 [facility] for incomplete ab TONSILLECTOMY PRIMARY/SECONDARY <AGE 12 2000 FAMILY HISTORY Problem Relation Age of Onset Diabetes Mother Arthritis Father multiple surgeries Thyroid Brother Cancer Maternal Grandmother Cancer Maternal Grandfather lung cancer Cancer Paternal Grandmother skin cancer Coronary Artery Disease Paternal Grandfather 36 Breast Cancer Paternal Aunt Social History Tobacco Use Smoking status: Every Day Packs/day: 0.50 Years: 20.00 Pack years: 10.00 Types: Cigarettes Smokeless tobacco: Never Vaping Use Vaping Use: Former Substance Use Topics Alcohol use: Not Currently Drug use: No Immunization History Administered Date(s) Administered influenza (IIV4) vaccine, age 6 mo - 64 yr, quadrivalent (AFLURIA, FLULAVAL, FLUZONE) 03/08/2018 04/24/2020 04/12/2022 tetanus diphtheria pertussis (Tdap) vaccine, age 7+ yr (ADACEL, BOOSTRIX) 10/15/2015 08/09/2018 ALLERGIES Allergen Reactions Tramadol GI Upset, Vomiting Prednisone Hives Current Outpatient Medications Medication Sig etonogestrel (NEXPLANON) 68 mg impl subdermal implant 68 mg by SUBDERMAL route. triamcinolone acetonide (KENALOG) 0.1 % cream Apply 1 application to affected area twice daily. Apply sparingly to area for rash of left ankle. DULoxetine (CYMBALTA) 20 mg capsule Take 1 capsule by mouth once daily. No current facility-administered medications for this visit. Objective BP 108/68 (BP Site: Left Arm, BP Position: Sitting, BP Cuff Size: Large Adult) Pulse 96 Resp 16 Ht 163.2 cm (5' 4.25 ) Wt 65.8 kg (145 lb) LMP 04/01/2022 (Exact Date) BMI 24.70 kg/m Physical Exam Constitutional: General: She is not in acute distress. Appearance: She is not ill-appearing. HENT: Head: Normocephalic. Eyes: General: No scleral icterus. Conjunctiva/sclera: Conjunctivae normal. Cardiovascular: Rate and Rhythm: Normal rate and regular rhythm. Heart sounds: No murmur heard. No gallop. Pulmonary: Effort: No respiratory distress. Breath sounds: No wheezing or rales. Abdominal: Palpations: Abdomen is soft. Tenderness: There is no abdominal tenderness. Musculoskeletal: Right shoulder: Tenderness and crepitus present. No swelling, deformity or bony tenderness. Normal range of motion. Left shoulder: Tenderness and crepitus present. No swelling, deformity or bony tenderness. Normal range of motion. Right upper arm: Normal. Left upper arm: Normal. Right elbow: Normal. Left elbow: Normal. Right wrist: Normal. Left wrist: Normal. Right hand: Normal. Left hand: Normal. Cervical back: Normal range of motion. Tenderness present. No rigidity. Thoracic back: Normal. Lumbar back: Tenderness present. No deformity or spasms. Normal range of motion. Positive right straight leg raise test and positive left straight leg raise test. No scoliosis. Right lower leg: No edema. Left lower leg: No edema. Lymphadenopathy: Cervical: No cervical adenopathy. Skin: Findings: Rash present. Comments: Group of keloid like dermatitis of the right lateral ankle, chronic. Neurological: General: No focal deficit present. Mental Status: She is alert and oriented to person, place, and time. Sensory: No sensory deficit. Gait: Gait normal. Psychiatric: Mood and Affect: Mood normal. Assessment and Plan 1. Chronic bilateral low back pain without sciatica - ICD9: 724.2, 338.29, ICD10: M54.50, G89.29 (primary diagnosis) - NSAIDs ineffective in the past. - SED RATE WESTERGREN - C-REACTIVE PROTEIN (CRP) - VITAMIN D 25 HYDROXY - DULOXETINE 20 MG CAPSULE,DELAYED RELEASE Shared medical decision making was done. Discussed medication dosage, usage, goals of therapy, and side effects. 2. Atopic dermatitis and related condition - ICD9: 691.8, ICD10: L20.9 Right lateral ankle, chronic. - TRIAMCINOLONE ACETONIDE 0.1 % TOPICAL CREAM 3. Tobacco use disorder - ICD9: 305.1, ICD10: F17.200 - Cessation encouraged. 4. Cervicalgia - ICD9: 723.1, ICD10: M54.2 Chronic, with cervicogenic headache. - SED RATE WESTERGREN - C-REACTIVE PROTEIN (CRP) - VITAMIN D 25 HYDROXY - DULOXETINE 20 MG CAPSULE,DELAYED RELEASE 5. Pain of right hip - ICD9: 719.45, ICD10: M25.551 Likely referred pain. 6. Encounter for hepatitis C screening test for low risk patient - ICD9: V73.89, ICD10: Z11.59 - HEP C AB IA W/CONF SCRN 7. Need for vaccination - ICD9: V05.9, ICD10: Z23 - PNEUMOCOCCAL VACCINE (PREVNAR 20) - HEP B VACCINE, 2-DOSE (HEPLISAV-B) Nasim Colon MD documented in this encounter [facility] 08-09-2022 Miscellaneous Notes Results sent via Silvigen message at this time Dr. Mancilla reviewed patient's MRI Cervical Spine Dr. Mancilla notes no significant narrowing in spine No bulging discs Dr. Mancilla notes slight kyphotic curvature of the cervical spine at C5. Dr. Mancilla this is due to muscle spasms and/or posture Dr. Mancilla recommends conservative treatment Patient could continue with either physical therapy and/or wellness center consultation. Patient needs to focus on posture Will update patient and determine if she would like either a physical therapy and/or wellness center consult and have orders placed appropriately documented in this encounter [facility] 08-03-2022 Note HNO ID: [id number] Author: RT Javad(Yesica) Service: ? Author Type: Technologist Type: Progress Notes Filed: 08/03/2022 2:30 PM Note Text: Radiology Service Progress Note PATIENT NAME: Giovanna Mcintyre DATE OF SERVICE: August 03, 2022 TIME: 2:29 PM PATIENT IDENTITY VERIFICATION COMPLETED USING TWO (2) IDENTIFIERS: Name and Date of confirmed by patient verbally. FALL SCREENING: Has the patient had 2 falls in the last year or 1 fall with injury or currently using an Ambulatory Assistive Device (Walker, Cane, Wheelchair, Crutches, etc.)? No PATIENT GENDER DATA: Female. status: : No status: NO. PATIENT RELEVANT IMPLANT DATA REVIEWED: Yes RADIOLOGY DEPARTMENT: MR; Exam(s) Completed: Spine: Cervical spine PERIPHERAL IV DATA: Not applicable SIGNED BY: RT Javad(Yesica) August 03, 2022 2:29 PM [facility] 08-03-2022 History of Presen t illness Narrative Radiology Service Progress Note PATIENT NAME: Giovanna Mcintyre DATE OF SERVICE: August 03, 2022 TIME: 2:29 PM PATIENT IDENTITY VERIFICATION COMPLETED USING TWO (2) IDENTIFIERS: Name and Date of confirmed by patient verbally. FALL SCREENING: Has the patient had 2 falls in the last year or 1 fall with injury or currently using an Ambulatory Assistive Device (Walker, Cane, Wheelchair, Crutches, etc.)? No PATIENT GENDER DATA: Female. status: : No status: NO. PATIENT RELEVANT IMPLANT DATA REVIEWED: Yes RADIOLOGY DEPARTMENT: MR; Exam(s) Completed: Spine: Cervical spine PERIPHERAL IV DATA: Not applicable SIGNED BY: RT Javad(R) August 03, 2022 2:29 PM documented in this encounter [facility] 04-15-2022 Note HNO ID: [id number] Author: Nasim Colon MD Service: ? Author Type: Physician Type: Progress Notes Filed: 04/16/2022 9:06 AM Note Text: This note was created using NoteWriter. Subjective Patient presents with: Recheck: Follow up CT Giovanna Mcintyre is a 36 year old female. Acute RUQ pain was better. We reviewed her test results. She was seeing Dr. Mancilla for chronic neck and low back pains. EKG, CXR, labs, CTA chest were negative. Only abnormality was D-dimer which is what led to CTA chest. I have not seen her 5 years, but still listed as PCP. Review of Systems Per HPI. ACTIVE PROBLEM LIST Tobacco Use Disorder Chronic Bilateral Low Back Pain Without Sciatica Cervicalgia Social History Tobacco Use Smoking status: Every Day Packs/day: 0.50 Years: 18.00 Pack years: 9.00 Types: Cigarettes Smokeless tobacco: Never Vaping Use Vaping Use: Former Substance Use Topics Alcohol use: Yes Comment: rare Drug use: No Current Outpatient Medications Medication Sig omeprazole (PRILOSEC) 40 mg capsule Take 1 capsule by mouth once daily. From Dr. Joey Grissom. etonogestrel (NEXPLANON) 68 mg impl subdermal implant 68 mg by SUBDERMAL route. No current facility-administered medications for this visit. Objective BP (P) 104/66 (BP Site: Left Arm, BP Position: Sitting, BP Cuff Size: Regular Adult) Pulse (P) 102 Wt (P) 63.5 kg (140 lb) LMP 04/01/2022 (Exact Date) BMI (P) 22.60 kg/m? Physical Exam Constitutional: Appearance: She is not ill-appearing or diaphoretic. Cardiovascular: Rate and Rhythm: Regular rhythm. Tachycardia present. Heart sounds: No murmur heard. No gallop. Pulmonary: Breath sounds: Normal breath sounds. Chest: Chest wall: No tenderness. Abdominal: Palpations: Abdomen is soft. Tenderness: There is no abdominal tenderness. Neurological: Mental Status: She is alert. Test results pertinent to today's visit were reviewed and discussed with the patient. Assessment and Plan 1. Right upper quadrant abdominal pain - ICD9: 789.01, ICD10: R10.11 (primary diagnosis) - Probably muscular. 2. Cervicalgia - ICD9: 723.1, ICD10: M54.2 Per pain management. 3. Chronic bilateral low back pain without sciatica - ICD9: 724.2, 338.29, ICD10: M54.50, G89.29 Per pain management. Appointment to reestablish care. Nasim Colon MD [facility] 04-15-2022 History of Presen t illness Narrative This note was created using L3riter. Subjective Patient presents with: Recheck: Follow up CT Giovanna Mcintyre is a 36 year old female. Acute RUQ pain was better. We reviewed her test results. She was seeing Dr. Mancilla for chronic neck and low back pains. EKG, CXR, labs, CTA chest were negative. Only abnormality was D-dimer which is what led to CTA chest. I have not seen her 5 years, but still listed as PCP. Review of Systems Per HPI. ACTIVE PROBLEM LIST Tobacco Use Disorder Chronic Bilateral Low Back Pain Without Sciatica Cervicalgia Social History Tobacco Use Smoking status: Every Day Packs/day: 0.50 Years: 18.00 Pack years: 9.00 Types: Cigarettes Smokeless tobacco: Never Vaping Use Vaping Use: Former Substance Use Topics Alcohol use: Yes Comment: rare Drug use: No Current Outpatient Medications Medication Sig omeprazole (PRILOSEC) 40 mg capsule Take 1 capsule by mouth once daily. From Dr. Joey Grissom. etonogestrel (NEXPLANON) 68 mg impl subdermal implant 68 mg by SUBDERMAL route. No current facility-administered medications for this visit. Objective BP (P) 104/66 (BP Site: Left Arm, BP Position: Sitting, BP Cuff Size: Regular Adult) Pulse (P) 102 Wt (P) 63.5 kg (140 lb) LMP 04/01/2022 (Exact Date) BMI (P) 22.60 kg/m Physical Exam Constitutional: Appearance: She is not ill-appearing or diaphoretic. Cardiovascular: Rate and Rhythm: Regular rhythm. Tachycardia present. Heart sounds: No murmur heard. No gallop. Pulmonary: Breath sounds: Normal breath sounds. Chest: Chest wall: No tenderness. Abdominal: Palpations: Abdomen is soft. Tenderness: There is no abdominal tenderness. Neurological: Mental Status: She is alert. Test results pertinent to today's visit were reviewed and discussed with the patient. Assessment and Plan 1. Right upper quadrant abdominal pain - ICD9: 789.01, ICD10: R10.11 (primary diagnosis) - Probably muscular. 2. Cervicalgia - ICD9: 723.1, ICD10: M54.2 Per pain management. 3. Chronic bilateral low back pain without sciatica - ICD9: 724.2, 338.29, ICD10: M54.50, G89.29 Per pain management. Appointment to reestablish care. Nasim Colon MD documented in this encounter [facility] 04-14-2022 Note HNO ID: [id number] Author: RT Alli(R) Service: ? Author Type: Machine Adjuster Type: Progress Notes Filed: 04/14/2022 3:46 PM Note Text: Radiology Service Progress Note DATE OF SERVICE: April 14, 2022 TIME: 3:46 PM PATIENT IDENTITY VERIFICATION COMPLETED USING TWO (2) STANDARD IDENTIFIERS: Name and Date of confirmed by patient verbally. FALL SCREENING: Has the patient had 2 falls in the last year or 1 fall with injury or currently using an Ambulatory Assistive Device (Walker, Cane, Wheelchair, Crutches, etc.)? No PATIENT GENDER DATA: Female. status: : No status: NO. PATIENT RELEVANT IMPLANT DATA REVIEWED: Yes ALLERGIES: Reviewed and unchanged CONTRAST ALLERGY: NO. EXAM: CT -CONTRAST INDUCED NEPHROPATHY RISK FACTORS: Not applicable CREATININE: Creatinine Date Value Ref Range Status 04/12/2022 0.79 0.58 - 0.96 mg/dL Final 07/30/2018 0.57 (L) 0.58 - 0.96 mg/dL Final 06/28/2018 0.50 (L) 0.58 - 0.96 mg/dL Final Estimated Glomerular Filtration Rate Date Value Ref Range Status 04/12/2022 100 >=60 mL/min/1.73m? Final Comment: Estimated Glomerular Filtration Rate (eGFR) is calculated using the 2020 CKD-EPI creatinine equation. This equation utilizes serum creatinine, sex, and age as parameters. The creatinine assay has traceable calibration to isotope dilution-mass spectrometry. Refer to KDIGO guidelines for clinical interpretation. In patients with unstable renal function, e.g. those with acute kidney injury, the eGFR may not accurately reflect actual GFR. eGFR- Date Value Ref Range Status 07/30/2018 >60 Final P.O.C.T. RESULTS: POC done: Yes, See Lab Tab April 14, 2022 TREATMENT: N/A PERIPHERAL IV DATA: Ambulatory: A peripheral IV was started in the Left antecubital site with a Angio cath: 18 gauge. RADIOLOGY DEPARTMENT: CT; Exam(s) Completed: PE Study SIGNATURE: RT Criss(R) PATIENT NAME: Giovanna Mcintyre DATE: April 14, 2022 TIME: 3:46 PM [facility] 04-14-2022 Note HNO ID: [id number] Author: Marilin Whyte LPN Service: ? Author Type: ? Type: Progress Notes Filed: 04/14/2022 1:21 PM Note Text: Patient scheduled. Marilin Whyte LPN [facility] 04-14-2022 Miscellaneous Notes Radiology calling if concerned of PE the order needs to be STAT for CT chest PE with IV and file med. This is arranged for today at 320 pm. ASSESSMENT/PLAN: 1. Pleurodynia - ICD9: 786.52, ICD10: R07.81 Changed order to STAT - CTA CHEST (NONGATED) W IVCON - IV CONTRAST (RADIOLOGY PROCEDURE) - CTA CHEST (NONGATED) WO/W IVCON - IV CONTRAST (RADIOLOGY PROCEDURE) Nasim Colon MD ASSESSMENT/PLAN: 1. Pleurodynia - ICD9: 786.52, ICD10: R07.81 D-dimer elevated with pleurisy. - CTA CHEST (NONGATED) W IVCON - IV CONTRAST (RADIOLOGY PROCEDURE) Nasim Colon MD documented in this encounter [facility] 04-13-2022 Note HNO ID: [id number] Author: Marilin Whyte LPN Service: ? Author Type: ? Type: Progress Notes Filed: 04/14/2022 1:21 PM Note Text: Please Order CTA FIDE then will contact Patient to schedule. Marilin Whyte LPN [facility] 04-12-2022 Note HNO ID: [id number] Author: RT Gray(Yesica) Service: Nuclear Medicine Author Type: Technologist Type: Progress Notes Filed: 04/12/2022 12:16 PM Note Text: Radiology Service Progress Note PATIENT NAME: Giovanna Mcintyre DATE OF SERVICE: April 12, 2022 TIME: 12:05 PM PATIENT IDENTITY VERIFICATION COMPLETED USING TWO (2) IDENTIFIERS: Name and Date of confirmed by patient verbally. FALL SCREENING: Has the patient had 2 falls in the last year or 1 fall with injury or currently using an Ambulatory Assistive Device (Walker, Cane, Wheelchair, Crutches, etc.)? No PATIENT GENDER DATA: Female. status: : No status: NO. PATIENT RELEVANT IMPLANT DATA REVIEWED: Not Applicable RADIOLOGY DEPARTMENT: General X-ray: Exam(s) Completed: Chest X-Ray PERIPHERAL IV DATA: Not applicable SIGNED BY: RT Gray(R) April 12, 2022 12:05 PM [facility] 04-12-2022 Note HNO ID: [id number] Author: Nasim Colon MD Service: ? Author Type: Physician Type: Progress Notes Filed: 04/12/2022 11:59 AM Note Text: This note was created using L3riter. Subjective Giovanna Mcintyre is a 36 year old female who was raking leaves around 5 or 6 pm yesterday when she developed acute tearing sensation in her epigastric area, radiating along her rib margin to the right posterolateral side. Pain was sharp, moderate in severity, and aggravated by movement, breathing, talking, and coughing. She stopped raking and rested, applying cool compress to the right upper abdomen without much improvement. This morning, symptoms were not better, and was associated with vague dyspnea, sweats, nausea with no vomiting. She was seeing Dr. Mancilla for chronic neck and low back pain. Review of Systems Constitutional: Positive for diaphoresis. Negative for chills and fever. HENT: Negative. Respiratory: Negative for cough, chest tightness and wheezing. Cardiovascular: Negative for chest pain, palpitations and leg swelling. Gastrointestinal: Negative for diarrhea and vomiting. Genitourinary: Negative. ACTIVE PROBLEM LIST Tobacco Use Disorder Chronic Bilateral Low Back Pain Without Sciatica Cervicalgia Social History Tobacco Use Smoking status: Every Day Packs/day: 0.50 Years: 18.00 Pack years: 9.00 Types: Cigarettes Smokeless tobacco: Never Vaping Use Vaping Use: Former Substance Use Topics Alcohol use: Yes Comment: rare Drug use: No PAST SURGICAL HISTORY Procedure Laterality Date DANDC (INCOMPLETE AB), ANY TRIMESTER 07/03/2015 DANIN for incomplete ab TONSILLECTOMY PRIMARY/SECONDARY ALLERGIES Allergen Reactions Guaifenesin Rash Prednisone Hives Current Outpatient Medications Medication Sig etonogestrel (NEXPLANON) 68 mg impl subdermal implant 68 mg by SUBDERMAL route. omeprazole (PRILOSEC) 40 mg capsule Take 1 capsule by mouth once daily. From Dr. Joey Grissom. No current facility-administered medications for this visit. Objective BP 110/70 (BP Site: Left Arm, BP Position: Sitting, BP Cuff Size: Large Adult) Pulse 104 Temp 36.4 ?C (97.5 ?F) (Temporal) Resp 20 Wt 63.5 kg (140 lb) LMP 12/14/2017 BMI 22.60 kg/m? Physical Exam Constitutional: General: She is not in acute distress. Appearance: She is not ill-appearing or diaphoretic. HENT: Head: Normocephalic. Eyes: General: No scleral icterus. Conjunctiva/sclera: Conjunctivae normal. Neck: Trachea: Trachea normal. Cardiovascular: Rate and Rhythm: Normal rate and regular rhythm. Heart sounds: No murmur heard. No gallop. Pulmonary: Breath sounds: Normal breath sounds. Chest: Chest wall: No tenderness. Abdominal: General: Abdomen is flat. Palpations: Abdomen is soft. Tenderness: There is abdominal tenderness in the right upper quadrant and epigastric area. There is no guarding or rebound. Musculoskeletal: Cervical back: No edema, tenderness or crepitus. Right lower leg: No edema. Left lower leg: No edema. Skin: Findings: No rash. Neurological: Mental Status: She is alert. Gait: Gait normal. EKG RESULTS: normal EKG, normal sinus rhythm, rate 89. Assessment and Plan 1. Right upper quadrant abdominal pain - ICD9: 789.01, ICD10: R10.11 (primary diagnosis) Etiology unclear - ECG COMPLETE - XR CHEST 2V FRONTAL/LAT - CBC - COMP METABOLIC PANEL - LIPASE BLD - D-DIMER 2. Need for influenza vaccination - ICD9: V04.81, ICD10: Z23 - INFLUENZA VACCINE QUADRIVALENT 6 MO - 64 YRS IM 3. Pleurisy - ICD9: 511.0, ICD10: R09.1 - ECG COMPLETE - XR CHEST 2V FRONTAL/LAT - CBC - COMP METABOLIC PANEL - LIPASE BLD - D-DIMER Advised ER if worse. Close follow up recommended. Nasim Colon MD [facility] 04-12-2022 Miscellaneous Notes Addended by: NASIM COLON on: 04/12/2022 01:12 PM Modules accepted: Orders documented in this encounter [facility] 04-12-2022 Instructions Nasim Colon MD - 04/12/2022 11:33 AM EDT GO TO ER FOR WORSENING SYMPTOMS. EKG NORMAL. BLOOD WORK AND XRAY TODAY. documented in this encounter [facility] 04-12-2022 History of Presen t illness Narrative This note was created using [employer]. Subjective Giovanna Mcintyre is a 36 year old female who was raking leaves around 5 or 6 pm yesterday when she developed acute tearing sensation in her epigastric area, radiating along her rib margin to the right posterolateral side. Pain was sharp, moderate in severity, and aggravated by movement, breathing, talking, and coughing. She stopped raking and rested, applying cool compress to the right upper abdomen without much improvement. This morning, symptoms were not better, and was associated with vague dyspnea, sweats, nausea with no vomiting. She was seeing Dr. Mancilla for chronic neck and low back pain. Review of Systems Constitutional: Positive for diaphoresis. Negative for chills and fever. HENT: Negative. Respiratory: Negative for cough, chest tightness and wheezing. Cardiovascular: Negative for chest pain, palpitations and leg swelling. Gastrointestinal: Negative for diarrhea and vomiting. Genitourinary: Negative. ACTIVE PROBLEM LIST Tobacco Use Disorder Chronic Bilateral Low Back Pain Without Sciatica Cervicalgia Social History Tobacco Use Smoking status: Every Day Packs/day: 0.50 Years: 18.00 Pack years: 9.00 Types: Cigarettes Smokeless tobacco: Never Vaping Use Vaping Use: Former Substance Use Topics Alcohol use: Yes Comment: rare Drug use: No PAST SURGICAL HISTORY Procedure Laterality Date D&C (INCOMPLETE AB), ANY TRIMESTER 07/03/2015 D&C for incomplete ab TONSILLECTOMY PRIMARY/SECONDARY <AGE 12 2000 ALLERGIES Allergen Reactions Guaifenesin Rash Prednisone Hives Current Outpatient Medications Medication Sig etonogestrel (NEXPLANON) 68 mg impl subdermal implant 68 mg by SUBDERMAL route. omeprazole (PRILOSEC) 40 mg capsule Take 1 capsule by mouth once daily. From Dr. Joey Grissom. No current facility-administered medications for this visit. Objective BP 110/70 (BP Site: Left Arm, BP Position: Sitting, BP Cuff Size: Large Adult) Pulse 104 Temp 36.4 C (97.5 F) (Temporal) Resp 20 Wt 63.5 kg (140 lb) LMP 12/14/2017 BMI 22.60 kg/m Physical Exam Constitutional: General: She is not in acute distress. Appearance: She is not ill-appearing or diaphoretic. HENT: Head: Normocephalic. Eyes: General: No scleral icterus. Conjunctiva/sclera: Conjunctivae normal. Neck: Trachea: Trachea normal. Cardiovascular: Rate and Rhythm: Normal rate and regular rhythm. Heart sounds: No murmur heard. No gallop. Pulmonary: Breath sounds: Normal breath sounds. Chest: Chest wall: No tenderness. Abdominal: General: Abdomen is flat. Palpations: Abdomen is soft. Tenderness: There is abdominal tenderness in the right upper quadrant and epigastric area. There is no guarding or rebound. Musculoskeletal: Cervical back: No edema, tenderness or crepitus. Right lower leg: No edema. Left lower leg: No edema. Skin: Findings: No rash. Neurological: Mental Status: She is alert. Gait: Gait normal. EKG RESULTS: normal EKG, normal sinus rhythm, rate 89. Assessment and Plan 1. Right upper quadrant abdominal pain - ICD9: 789.01, ICD10: R10.11 (primary diagnosis) Etiology unclear - ECG COMPLETE - XR CHEST 2V FRONTAL/LAT - CBC - COMP METABOLIC PANEL - LIPASE BLD - D-DIMER 2. Need for influenza vaccination - ICD9: V04.81, ICD10: Z23 - INFLUENZA VACCINE QUADRIVALENT 6 MO - 64 YRS IM 3. Pleurisy - ICD9: 511.0, ICD10: R09.1 - ECG COMPLETE - XR CHEST 2V FRONTAL/LAT - CBC - COMP METABOLIC PANEL - LIPASE BLD - D-DIMER Advised ER if worse. Close follow up recommended. Nasim Colon MD documented in this encounter [facility] 01-17-2022 Miscellaneous Notes Order placed for cervical MRI documented in this encounter [facility] 01-06-2022 Miscellaneous Notes Results sent via [employer] at this time PT order signed off Dr. Mancilla reviewed patient's XR Cervical Spine and Pelvis Cervical spine shows nothing acute Mild C5 retrolisthesis Straightening of the cervical spine indicative of muscle spasms Nothing acute seen in pelvis XR Dr. Mancilla recommends patient to participate in physical therapy for 4-6 weeks. If no improvement after 4-6 weeks, the next step would be MRI of the lumbar spine and/or cervical spine documented in this encounter [facility] 01-03-2022 Note HNO ID: [id number] Author: Alcides Mancilla MD Service: ? Author Type: Physician Type: Progress Notes Filed: 01/03/2022 2:49 PM Note Text: [facility] Date: January 03, 2022 - 1:40 PM Giovanna Mcintyre is self referred. Chief Complaint: back pain SUBJECTIVE: Giovanna Mcintyre, is a 36 year old female who presents with lower back pain. The pain started years ago, with no known injury or trauma. The pain onset was gradual. The patient states that the current pain is persistent. Her pain is located in the bilateral lumbar region and radiates to right lower extremity along lateral aspect to the level of hip. // The pain is described as aching, burning and throbbing. The pain intensity is rated 7. The pain is exacerbated by twisting and flexion and relieved by application of heat. Symptoms interfere with physical activity, walking, sleeping, driving, cooking, household cleaning and lifting. 50% pain in spine vs 50% (radiating) pain in the extremity. Litigation: No. Worker's Compensation: No. Prior pain treatment has included physical therapy with worsening of symptoms, Dates: [id number]? Medications: Flexeril, Relafen, Mobic, Ibuprofen, gabapentin, Tylenol with minimal relief. Injection: Lumbar injection at [facility] in 2018. ALLERGIES Allergen Reactions - Guaifenesin Rash - Prednisone Hives Current Medications: Pain medications reviewed and reconciled in the medication list: Yes. Current Outpatient Medications Medication Sig - etonogestrel (NEXPLANON) 68 mg impl subdermal implant 68 mg by SUBDERMAL route. - ferrous sulfate (IRON ORAL) Take by mouth. - [id number] (ONE-A-DAY WOMEN'S 1) 28 mg iron- 800 mcg-235 mg cap Take 1 capsule by mouth once daily. - albuterol HFA (VENTOLIN HFA) 90 mcg/actuation inhaler Inhale 2 Puffs as instructed every 4 hours as needed for Wheezing/Shortness of Breath. - cetirizine (ZYRTEC) 10 mg tablet Take 1 tablet by mouth once daily. No current facility-administered medications for this visit. PAST MEDICAL HISTORY Diagnosis Date - Anemia complicating , third trimester 07/02/2018 - Atopic dermatitis and related condition 10/15/2015 Dr. Strauss - Bulging lumbar disc - Gestational diabetes mellitus, class A1 07/02/2018 - Gestational hypertension without significant proteinuria, antepartum 07/13/2018 - History of heart murmur in childhood - Tobacco use disorder 10/15/2015 PAST SURGICAL HISTORY Procedure Laterality Date - DANDC (INCOMPLETE AB), ANY TRIMESTER 07/03/2015 DANDC for incomplete ab - TONSILLECTOMY PRIMARY/SECONDARY FAMILY HISTORY Problem Relation Age of Onset - Diabetes Mother - Arthritis Father multiple surgeries - Cancer Maternal Grandmother - Cancer Maternal Grandfather lung cancer - Cancer Paternal Grandmother skin cancer - Coronary Artery Disease Paternal Grandfather 36 - Thyroid Brother - Breast Cancer Paternal Aunt Social History: Alcohol Use: Yes (rare) Tobacco Use: 0.5 packs/day, for 11 years. Types: Cigarettes Drug Use: No Employer And Job Title: [employer]) Years Of Education Completed: Not specified Marital Status: to [place] with no children REVIEW OF SYSTEMS: Constitutional: (-) Fever (-) Night Sweats (-) Weight Gain (-) Weight Loss (-) Fatigue Cardiovascular: (-) Chest Pain (-) Palpitations (-) Lightheadedness (+) Swelling of Ankles (-) Hx Heart Surgery Respiratory: (-) Shortness of Breath (-) Cough (-) Wheezing (-) Snoring Gastrointestinal: (-) Incontinence (-) Abdominal Pain (-) Diarrhea (-) Constipation (-) Nausea/Vomiting (+) Heart Burn Endocrine: (-) Thyroid Disorder (-) Diabetes Hematologic: (-) Prolonged Bleeding (+) Easy Bruising Genitourinary: (-) Incontinence (-) Frequency (-) Urinary Urgency Skin: (+) Rashes (+) Itching (+) Other Lesions Neurologic: (+) Headache (-) Double Vision (-) Confusion (-) Paralysis (-) Vertigo (+) Syncope Psychiatric: (-) Depression (-) Anxiety (-) Delusions (-) Hallucinations (-) Suicidal Thoughts OARRS Report reviewed: Yes Narcotic Agreement reviewed and signed?: N/A Baseline Urine Toxicology obtained: N/A Urine Panel: No results found for: UQCANN, UQBNZL, MED7CYY, UQAMPH, UQMAMP, UQBUPRE, UQNORBUP, UQMTHD, UQEDDP, UQTRAM, UQDTRM, UQFNTL, UQNFTL, UQCODE, UQMORP, UQDCDN, UQHCOD, UQOXYC, UQHMOR, UQOXYM, UQCREA, UQPH, UQSPGR, UQOXID, UQSPQ The pain panel was N/A OBJECTIVE: Performed in conjunction with observation. The patient was alert and oriented x3. The patient was in no acute distress. Lungs: Clear, negative for dyspnea or distress. CVR: Negative for SOB or peripheral edema. Neck: Supple. The range of motion was intact. Diffuse paracervical tenderness that extends down to the upper thoracic region bilaterally. Cervical facet loading: Negative Spurling's: Negati (more content not included)... [facility] 09-17-2021 History of Presen t illness Narrative Giovanna is a 35 year old who presents for an annual gynecologic exam. Noticing some stress incontinence and some prolapse. Pelvic pain with intercourse and at times having RLQ and LLQ pain. Menses: cycles every 28 days and 5-6 days of flow. Contraception: Nexplanon placed at [facility] after delivery of son HPV vaccine: N/A Last Pap: 02/19/2018 normal HPV: 02/14/2018 negative History of abnormal pap: No Last mammogram: never Sexually active: Yes Patient concerns for STD exposure: No. OB History T1 L1 SAB1 IAB0 Ectopic0 Multiple0 Live Births1 Communications Strategist History LMP: 12/14/2017, Implant Age at Menarche: Age at First : Age at Menopause: Communications Strategist History Comments: Sexual Activity: Yes; Male Contraception: Implant PAST MEDICAL HISTORY Diagnosis Date Anemia complicating , third trimester 07/02/2018 Atopic dermatitis and related condition 10/15/2015 Dr. Strauss Bulging lumbar disc Gestational diabetes mellitus, class A1 07/02/2018 Gestational hypertension without significant proteinuria, antepartum 07/13/2018 History of heart murmur in childhood Tobacco use disorder 10/15/2015 PAST SURGICAL HISTORY Procedure Laterality Date D&C (INCOMPLETE AB), ANY TRIMESTER 07/03/2015 D&C for incomplete ab TONSILLECTOMY PRIMARY/SECONDARY <AGE 12 2000 FAMILY HISTORY Problem Relation Age of Onset Diabetes Mother Arthritis Father multiple surgeries Cancer Maternal Grandmother Cancer Maternal Grandfather lung cancer Cancer Paternal Grandmother skin cancer Coronary Artery Disease Paternal Grandfather 36 Thyroid Brother Breast Cancer Paternal Aunt SOCIAL HISTORY Social History Tobacco Use Smoking status: Current Every Day Smoker Packs/day: 0.50 Years: 11.00 Pack years: 5.50 Types: Cigarettes Smokeless tobacco: Never Used Vaping Use Vaping Use: Former Substance Use Topics Alcohol use: Yes Comment: rare Drug use: No REVIEW OF SYSTEMS Abdomen: No abdominal pain, nausea, vomiting, diarrhea, or constipation. No bloating, early satiety, indigestion, or increased flatulence. Bladder: No dysuria, gross hematuria, urinary frequency, urinary urgency. Breast: No breast lumps, nipple d/c, overlying skin changes, redness or skin retraction. Allergies and current medication updated:Yes EXAM: BP 108/70 Ht 5' 5 (1.65m) Wt 150 lb 9.6 oz (68.3kg) LMP 12/14/2017 BMI 25.06 kg/(m^2). GENERAL: pleasant, female in no apparent distress HEENT: Normocephalic, atraumatic, mucus membranes moist and no lesions NECK: Supple, full range of motion, no adenopathy and thyroid normal DERMATOLOGY: Normal, without lesions, non-icteric and non-hirsute BREAST: soft, non-tender, symmetric, no dominant mass, normal nipple-areolar complex, no lymphadenopathy and no nipple discharge CHEST: Normal inspiratory effort ABDOMEN: soft, non-tender and no masses PELVIC: external genitalia normal, normal Bartholin's glands, urethra, Albee's glands, no vulvar lesions, no cervical lesions, good vaginal support, physiologic discharge present, normal appearing perineal body and perianal region BIMANUAL: uterus normal size, shape and consistency, no adnexal masses and non-tender RECTOVAGINAL: deferred. NEURO: exam grossly non-focal EXTREMITIES: normal ASSESSMENT/PLAN: 1) Health maintenance: Pap/HPV up to date. Mammogram starting age 40. Nutrition, exercise and routine health maintenance exams reviewed. Discussed treatment options for TRACEY. No significant prolapse on exam today. Recommend pelvic floor PT. Check urine. 2) Contraception: Nexplanon. Contraceptive options reviewed and information provided. 3) STD screening: Declined STD check. 4) Follow up for Nexplanon removal and reinsertion. Danyell Bianchi DO documented in this encounter [facility] documented as of this encounter (statuses as of 09/17/2021) [facility] History of Past illness Narrative* Problem Noted Date Resolved Date Gestational hypertension wit hout significant proteinuria, antepartum 07/13/2018 08/30/2018 Anemia complicating , third trimester 0 07/02/2018 10/23/2018 Gestational diabetes mellitus, class A1 07/02/19 19 10/23/2018 Abnormal laboratory test 04/12/2018 019 Overview: 04/12/2018 Patient with false positive hepatitis B. Retest on 04/16/18 shows negative confirmatory test. SW Toxicologic finding abnormality 02/16/2018 10/23/2018 Overview: 03/08/18 - Patient states occasional marijuana use for her back pain. Counseled on risks in of marijuana use. Denies oxycodone use but she has used in the past for her back. She states that maybe she took 1 without remembering. Tiffanie Dhaliwal MD 02/16/18 - utox at first visit was positive for marijuana & oxycodone, needs to be discussed with patient at next visit - Tiffanie Dhaliwal MD Midline low back pain 02/09/2018 02/09/2018 Overview: 02/09/18 - patient was going to get injections before positive test - KJ Tobacco use in , antepartum 06/19/2015 10/15/2015 Supervision of high risk in first trim jesica 06/19/2015 10/15/2015 documented as of this encounter (statuses as of 01/06/2022) [facility] History of Past illness Narrative* Problem Noted Date Resolved Date Gestational hypertension wit hout significant proteinuria, antepartum 07/13/2018 08/30/2018 Anemia complicating , third trimester 0 07/02/2018 10/23/2018 Gestational diabetes mellitus, class A1 07/02/19 19 10/23/2018 Abnormal laboratory test 04/12/2018 019 Overview: 04/12/2018 Patient with false positive hepatitis B. Retest on 04/16/18 shows negative confirmatory test. SW Toxicologic finding abnormality 02/16/2018 10/23/2018 Overview: 03/08/18 - Patient states occasional marijuana use for her back pain. Counseled on risks in of marijuana use. Denies oxycodone use but she has used in the past for her back. She states that maybe she took 1 without remembering. Tiffanie Dhaliwal MD 02/16/18 - utox at first visit was positive for marijuana & oxycodone, needs to be discussed with patient at next visit - Tiffanie Dhaliwal MD Midline low back pain 02/09/2018 02/09/2018 Overview: 02/09/18 - patient was going to get injections before positive test - KJ Tobacco use in , antepartum 06/19/2015 10/15/2015 Supervision of high risk in first trim jesica 06/19/2015 10/15/2015 documented as of this encounter (statuses as of 01/17/2022) [facility] History of Past illness Narrative* Problem Noted Date Resolved Date Gestational hypertension wit hout significant proteinuria, antepartum 07/13/2018 08/30/2018 Anemia complicating , third trimester 0 07/02/2018 10/23/2018 Gestational diabetes mellitus, class A1 07/02/19 19 10/23/2018 Abnormal laboratory test 04/12/2018 05 019 Overview: 04/12/2018 Patient with false positive hepatitis B. Retest on 04/16/18 shows negative confirmatory test. Toxicologic finding abnormality 02/16/2018 10/23/2018 Overview: 03/08/18 - Patient states occasional marijuana use for her back pain. Counseled on risks in of marijuana use. Denies oxycodone use but she has used in the past for her back. She states that maybe she took 1 without remembering. Tiffanie Dhaliwal MD 02/16/18 - utox at first visit was positive for marijuana & oxycodone, needs to be discussed with patient at next visit - Tiffanie Dhaliwal MD Tobacco smoking affecting 02/09/2018 04/12/2022 Bulging lumbar disc 02/09/2018 04/12/2022 Overview: 05/01/2018 Pt was seeing LENORE Ortiz at [facility]. Signing records release. After obtaining records, discuss delivery plan/epidural. SW 02/09/18 - patient was going to get injections before positive test - KJ Atopic dermatitis and related condition 10/15/19 16 04/12/2022 Overview: Dr. Strauss Periodic headache syndrome, not intractable 10/201504/12/2022 Tobacco use in , antepartum 06/19/2015 10/15/2015 Supervision of high risk in first trim jesica 06/19/2015 10/15/2015 documented as of this encounter (statuses as of 04/12/2022) [facility] History of Past illness Narrative* Problem Noted Date Resolved Date Gestational hypertension wit hout significant proteinuria, antepartum 07/13/2018 08/30/2018 Anemia complicating , third trimester 0 07/02/2018 10/23/2018 Gestational diabetes mellitus, class A1 07/02/19 19 10/23/2018 Abnormal laboratory test 04/12/2018 019 Overview: 04/12/2018 Patient with false positive hepatitis B. Retest on 04/16/18 shows negative confirmatory test. Toxicologic finding abnormality 02/16/2018 10/23/2018 Overview: 03/08/18 - Patient states occasional marijuana use for her back pain. Counseled on risks in of marijuana use. Denies oxycodone use but she has used in the past for her back. She states that maybe she took 1 without remembering. Tiffanie Dhaliwal MD 02/16/18 - utox at first visit was positive for marijuana & oxycodone, needs to be discussed with patient at next visit - Tiffanie Dhaliwal MD Tobacco smoking affecting 02/09/2018 04/12/2022 Bulging lumbar disc 02/09/2018 04/12/2022 Overview: 05/01/2018 Pt was seeing LENORE Ortiz at [facility]. Signing records release. After obtaining records, discuss delivery plan/epidural. SW 02/09/18 - patient was going to get injections before positive test - KJ Atopic dermatitis and related condition 10/15/19 16 04/12/2022 Overview: Dr. Strauss Periodic headache syndrome, not intractable 10/201504/12/2022 Tobacco use in , antepartum 06/19/2015 10/15/2015 Supervision of high risk in first trim jesica 06/19/2015 10/15/2015 documented as of this encounter (statuses as of 04/14/2022) [facility] History of Past illness Narrative* Problem Noted Date Resolved Date Gestational hypertension wit hout significant proteinuria, antepartum 07/13/2018 08/30/2018 Anemia complicating , third trimester 0 07/02/2018 10/23/2018 Gestational diabetes mellitus, class A1 07/02/19 19 10/23/2018 Abnormal laboratory test 04/12/2018 019 Overview: 04/12/2018 Patient with false positive hepatitis B. Retest on 04/16/18 shows negative confirmatory test. SW Toxicologic finding abnormality 02/16/2018 10/23/2018 Overview: 03/08/18 - Patient states occasional marijuana use for her back pain. Counseled on risks in of marijuana use. Denies oxycodone use but she has used in the past for her back. She states that maybe she took 1 without remembering. Tiffanie Dhaliwal MD 02/16/18 - utox at first visit was positive for marijuana & oxycodone, needs to be discussed with patient at next visit - Tiffanie Dhaliwal MD Tobacco smoking affecting 02/09/2018 04/12/2022 Bulging lumbar disc 02/09/2018 04/12/2022 Overview: 05/01/2018 Pt was seeing LENORE Ortiz at [facility]. Signing records release. After obtaining records, discuss delivery plan/epidural. SW 02/09/18 - patient was going to get injections before positive test - KJ Atopic dermatitis and related condition 10/15/19 16 04/12/2022 Overview: Dr. Strauss Periodic headache syndrome, not intractable 10/201504/12/2022 Tobacco use in , antepartum 06/19/2015 10/15/2015 Supervision of high risk in first trim jesica 06/19/2015 10/15/2015 documented as of this encounter (statuses as of 04/16/2022) [facility] History of Past illness Narrative* Problem Noted Date Resolved Date Gestational hypertension wit hout significant proteinuria, antepartum 07/13/2018 08/30/2018 Anemia complicating , third trimester 0 07/02/2018 10/23/2018 Gestational diabetes mellitus, class A1 07/02/19 19 10/23/2018 Abnormal laboratory test 04/12/2018 019 Overview: 04/12/2018 Patient with false positive hepatitis B. Retest on 04/16/18 shows negative confirmatory test. SW Toxicologic finding abnormality 02/16/2018 10/23/2018 Overview: 03/08/18 - Patient states occasional marijuana use for her back pain. Counseled on risks in of marijuana use. Denies oxycodone use but she has used in the past for her back. She states that maybe she took 1 without remembering. Tiffanie Dhaliwal MD 02/16/18 - utox at first visit was positive for marijuana & oxycodone, needs to be discussed with patient at next visit - Tiffanie Dhaliwal MD Tobacco smoking affecting 02/09/2018 04/12/2022 Bulging lumbar disc 02/09/2018 04/12/2022 Overview: 05/01/2018 Pt was seeing LENORE Ortiz at [facility]. Signing records release. After obtaining records, discuss delivery plan/epidural. SW 02/09/18 - patient was going to get injections before positive test - KJ Atopic dermatitis and related condition 10/15/19 16 04/12/2022 Overview: Dr. Strauss Periodic headache syndrome, not intractable 10/201504/12/2022 Tobacco use in , antepartum 06/19/2015 10/15/2015 Supervision of high risk in first trim jesica 06/19/2015 10/15/2015 documented as of this encounter (statuses as of 08/09/2022) [facility] History of Past illness Narrative* Problem Noted Date Resolved Date Gestational hypertension wit hout significant proteinuria, antepartum 07/13/2018 08/30/2018 Anemia complicating , third trimester 0 07/02/2018 10/23/2018 Gestational diabetes mellitus, class A1 07/02/19 19 10/23/2018 Abnormal laboratory test 04/12/2018 019 Overview: 04/12/2018 Patient with false positive hepatitis B. Retest on 04/16/18 shows negative confirmatory test. Toxicologic finding abnormality 02/16/2018 10/23/2018 Overview: 03/08/18 - Patient states occasional marijuana use for her back pain. Counseled on risks in of marijuana use. Denies oxycodone use but she has used in the past for her back. She states that maybe she took 1 without remembering. Tiffanie Dhaliwal MD 02/16/18 - utox at first visit was positive for marijuana & oxycodone, needs to be discussed with patient at next visit - Tiffanie Dhaliwal MD Tobacco smoking affecting 02/09/2018 04/12/2022 Bulging lumbar disc 02/09/2018 04/12/2022 Overview: 05/01/2018 Pt was seeing LENORE Ortiz at [facility]. Signing records release. After obtaining records, discuss delivery plan/epidural. SW 02/09/18 - patient was going to get injections before positive test - KJ Periodic headache syndrome, not intractable 10/201504/12/2022 Tobacco use in , antepartum 06/19/2015 10/15/2015 Supervision of high risk in first trim jesica 06/19/2015 10/15/2015 documented as of this encounter (statuses as of 10/18/2022) [facility] History of Past illness Narrative* Problem Noted Date Resolved Date Gestational hypertension wit hout significant proteinuria, antepartum 07/13/2018 08/30/2018 Anemia complicating , third trimester 0 07/02/2018 10/23/2018 Gestational diabetes mellitus, class A1 07/02/19 19 10/23/2018 Abnormal laboratory test 04/12/2018 019 Overview: 04/12/2018 Patient with false positive hepatitis B. Retest on 04/16/18 shows negative confirmatory test. Toxicologic finding abnormality 02/16/2018 10/23/2018 Overview: 03/08/18 - Patient states occasional marijuana use for her back pain. Counseled on risks in of marijuana use. Denies oxycodone use but she has used in the past for her back. She states that maybe she took 1 without remembering. Tiffanie Dhaliwal MD 02/16/18 - utox at first visit was positive for marijuana & oxycodone, needs to be discussed with patient at next visit - iTffanie Dhaliwal MD Tobacco smoking affecting 02/09/2018 04/12/2022 Bulging lumbar disc 02/09/2018 04/12/2022 Overview: 05/01/2018 Pt was seeing LENORE Ortiz at [facility]. Signing records release. After obtaining records, discuss delivery plan/epidural. SW 02/09/18 - patient was going to get injections before positive test - KJ Periodic headache syndrome, not intractable 10/201504/12/2022 Tobacco use in , antepartum 06/19/2015 10/15/2015 Supervision of high risk in first trim jesica 06/19/2015 10/15/2015 documented as of this encounter (statuses as of 11/08/2022) [facility] History of Past illness Narrative* Problem Noted Date Diagnosed Date Resolved Date Gestational hypertension wit hout significant proteinuria, antepartum 07/13/2018 08/30/2018 Anemia complicating pregnanc y, third trimester 07/02/2018 10/23/2018 Gestational diabetes mellitus, class A1 07/02/2018 10/23/2018 Abnormal laboratory test 04/12/2018 Overview: 04/12/2018 Patient with false positive hepatitis B. Retest on 04/16/18 shows negative confirmatory test. Toxicologic finding abnormality 02/16/2018 10/23/2018 Overview: 03/08/18 - Patient states occasional marijuana use for her back pain. Counseled on risks in of marijuana use. Denies oxycodone use but she has used in the past for her back. She states that maybe she took 1 without remembering. Tiffanie Dhaliwal MD 02/16/18 - utox at first visit was positive for marijuana & oxycodone, needs to be discussed with patient at next visit - Tiffanie Dhaliwal MD Tobacco smoking affecting 02/09/2018 04/12/2022 Bulging lumbar disc 02/09/2018 04/12/20 22 Overview: 05/01/2018 Pt was seeing LENORE Ortiz at [facility]. Signing records release. After obtaining records, discuss delivery plan/epidural. SW 02/09/18 - patient was going to get injections before positive test - KJ Periodic headache syndrome, not intractable 10/15/2015 04/12/2022 Tobacco use in , antepartum 06/19/2015 10/15/2015 Supervision of high risk pre gnancy in first trimester 06/19/2015 10/15/2015 documented as of this encounter (statuses as of 12/21/2022) [facility] History of Past illness Narrative* Problem Noted Date Diagnosed Date Resolved Date Gestational hypertension wit hout significant proteinuria, antepartum 07/13/2018 08/30/2018 Anemia complicating pregnanc y, third trimester 07/02/2018 10/23/2018 Gestational diabetes mellitus, class A1 07/02/2018 10/23/2018 Abnormal laboratory test 04/12/2018 Overview: 04/12/2018 Patient with false positive hepatitis B. Retest on 04/16/18 shows negative confirmatory test. Toxicologic finding abnormality 02/16/2018 10/23/2018 Overview: 03/08/18 - Patient states occasional marijuana use for her back pain. Counseled on risks in of marijuana use. Denies oxycodone use but she has used in the past for her back. She states that maybe she took 1 without remembering. Tiffanie Dhaliwal MD 02/16/18 - utox at first visit was positive for marijuana & oxycodone, needs to be discussed with patient at next visit - Tiffanie Dhaliwal MD Tobacco smoking affecting 02/09/2018 04/12/2022 Bulging lumbar disc 02/09/2018 04/12/20 Overview: 05/01/2018 Pt was seeing LENORE Ortiz at [facility]. Signing records release. After obtaining records, discuss delivery plan/epidural. SW 02/09/18 - patient was going to get injections before positive test - KJ Periodic headache syndrome, not intractable 10/15/2015 04/12/2022 Tobacco use in , antepartum 06/19/2015 10/15/2015 Supervision of high risk pre gnancy in first trimester 06/19/2015 10/15/2015 documented as of this encounter (statuses as of 04/16/2023) [facility] Encounter for gynecological examination (general) (routine) without abnormal findings- Primary Nexplanon insertion Insertion of implantable subdermal contraceptive Nexplanon removal Surveillance of previously prescribed implantable subdermal contraceptive Deep dyspareunia Pelvic pain in female Unspecified symptom associated with female genital organs Stress incontinence Female stress incontinence [facility] [place] [facility]* Diagnosis Cervicalgia- Primary Chronic bilateral low back pain without sciatica [facility] [place] [facility]* Diagnosis Spinal stenosis of cervical region- Primary Spinal stenosis in cervical region [facility] [place] [facility]* Diagnosis Right upper quadrant abdominal pain- Primary Abdominal pain, right upper quadrant Need for influenza vaccination Need for prophylactic vaccination and inoculation against influenza Pleurisy Pleurisy without mention of effusion or current tuberculosis [facility] [place] [facility]* Diagnosis Pleurodynia- Primary Painful respiration [facility] [place] [facility]* Diagnosis Right upper quadrant abdominal pain- Primary Abdominal pain, right upper quadrant Cervicalgia Chronic bilateral low back pain without sciatica documented [facility] [place] [facility]* Diagnosis Chronic bilateral low back pain without sciatica- Primary Atopic dermatitis and related condition Other atopic dermatitis and related conditions Tobacco use disorder Cervicalgia Pain of right hip Encounter for hepatitis C screening test for low risk patient Need for vaccination Need for prophylactic vaccination and inoculation against unspecified single disease [facility] [place] [facility]* Diagnosis Vitamin D deficiency- Primary Unspecified vitamin D deficiency Atopic dermatitis and related condition Other atopic dermatitis and related conditions [facility] [place] [facility]* Diagnosis Upper back pain- Primary Chronic bilateral low back pain without sciatica Cervicalgia Vitamin D deficiency Unspecified vitamin D deficiency documented [facility] [place] [facility]* Diagnosis Spinal stenosis of cervical region Spinal stenosis in cervical region documented in this encounter [facility] for referral (narrative)* Outpatient Procedure (Routine) - Closed Specialty Diagnoses / Procedures Referred By Contac t Referred [facility] Diagnoses Right upper quadrant abdominal pain Pleurisy Procedures ECG COMPLETE ECG ROUTINE ECG W/LEAST 12 LDS W/I&R Nasim Colon MD [address] [place] [address] [facility] [address] [place] [id number] Referral ID Status Reason Start Date Expiration Date V isits Requested Visits Authorized [id number] Closed Auto-Generate d Referral 04/12/2022 04/12/2023 1 1 * Outpatient Procedure (Routine) - Pending Review Specialty Diagnoses / Procedures Referred By Contac t Referred To [facility] Diagnoses Right upper quadrant abdominal pain Pleurisy Procedures ECG COMPLETE ECG ROUTINE ECG W/LEAST 12 LDS W/I&R Nasim Colon MD [address] [place] [address] [facility] [address] [place] [address] Referral ID Status Reason Start Date Expiration Date Visits Requested Visits Authorized [id number] Pending Review Auto-Generat ed Referral 04/12/2022 04/12/2023 1 1 [facility] Reason for Referral Specialty Diagnoses / Procedures Referred By Contac t [facility] Diagnoses Deep dyspareunia Pelvic pain in female Stress incontinence Procedures CONSULT TO PHYSICAL THERAPY PHYSICAL THERAPY EVALUATION HIGH COMPLEX 45 MINS Danyell Bianchi MD [address] [place] [address] [id number] [place] [address] Referral ID Status Reason Start Date Expiration Date Visits Requested Visits Authorized [id number] Pending Review Auto-Generat ed Referral 09/17/2021 09/17/2022 1 1 Specialty Diagnoses / Procedures Referred By Contac t Referred To [facility] Diagnoses Nexplanon insertion Procedures NEXPLANON INSERTION ETONOGESTREL IMPLANT SYSTEM INSERT DRUG IMPLANT DEVICE Danyell Bianchi MD [address] [place] [address] [address] Referral ID Status Reason Start Date Expiration Date Visits Requested Visits Authorized [id number] Pending Review Auto-Generat ed Referral 09/17/2021 09/17/2022 1 1 Specialty Diagnoses / Procedures Referred By Contac t Referred To Contact [facility] Diagnoses Nexplanon removal Procedures NEXPLANON REMOVAL REMOVAL NON-BIODEGRADABLE DRUG DELIVERY IMPLANT Danyell Bianchi MD [address] [place] [address] [facility] [address] [place] [address] Referral ID Status Reason Start Date Expiration Date Visits Requested Visits Authorized [id number] Pending Review Auto-Generat ed Referral 09/17/2021 09/17/2022 1 1 Specialty Diagnoses / Procedures Referred By Contac t Referred To Contact [facility] Diagnoses Cervicalgia Chronic bilateral low back pain without sciatica Procedures CONSULT TO PHYSICAL THERAPY PHYSICAL THERAPY EVALUATION HIGH COMPLEX 45 MINS Sherif Dangelo, ROLL CARRIER.TRACK INSPECTING SUPERVISOR [address] [place] [address] [facility] [address] [address] Referral ID Status Reason Start Date Expiration Date Visits Requested Visits Authorized [id number] Pending Review Auto-Generat ed Referral 01/06/2022 01/06/2023 1 1 Specialty Diagnoses / Procedures Referred By Contac t Referred To Contact [facility] Diagnoses Spinal stenosis of cervical region Procedures MRI CERVICAL SPINE WO IVCON MRI SPINAL CANAL CERVICAL W/O CONTRAST MATRL Sherif Dangelo, ROLL CARRIER.TRACK INSPECTING SUPERVISOR [address] [place] [address] [facility] Referral ID Status Reason Start Date Expiration Date Visits Requested Visits Authorized [id number] Pending Review Auto-Generat ed Referral 01/17/2022 02/16/2023 1 1 Specialty Diagnoses / Procedures Referred By Contac t Referred To Contact CT [facility] Diagnoses Pleurodynia Procedures CT CHEST W IVCON PE DIAGNOSTIC COMPUTED TOMOGRAPHY THORAX W/CONTRAST Nasim Colon MD [address] [place] [address] Ct [facility] Referral ID Status Reason Start Date Expiration Date Visits Requested Visits Authorized [id number] Authorized Auto-Generat ed Referral 04/14/2022 05/14/2023 1 1 Specialty Diagnoses / Procedures Referred By Contac t Referred To Contact [facility] Diagnoses Spinal stenosis of cervical region Procedures MRI CERVICAL SPINE WO IVCON MRI SPINAL CANAL CERVICAL W/O CONTRAST MATRL DangeloSherif garcia M, ROLL CARRIER.TRACK INSPECTING SUPERVISOR [address] [place] [address] [place] [address] Referral ID Status Reason Start Date Expiration Date V isits Requested Visits Authorized [id number] Closed Auto-Generate d Referral 01/17/2022 02/16/2023 1 1 Summary Purpose Family History No Family History Records Found Advance Directives No Advanced Directives Records Found Additional Source Comments Source Comments (unrecognize d section and content) In the event this informatio n is protected by the Federal Confidentiality of Alcohol and Drug Abuse Patient Records regulations: The Federal rules restrict any use of the information to criminally investigate or prosecute any alcohol or drug abuse patient.[facility] the event this information is protected by the Federal Confidentiality of Alcohol and Drug Abuse Patient Records regulations: The Federal rules restrict any use of the information to criminally investigate or prosecute any alcohol or drug abuse patient.[facility] the event this information is protected by the Federal Confidentiality of Alcohol and Drug Abuse Patient Records regulations: The Federal rules restrict any use of the information to criminally investigate or prosecute any alcohol or drug abuse patient.[facility] the event this information is protected by the Federal Confidentiality of Alcohol and Drug Abuse Patient Records regulations: The Federal rules restrict any use of the information to criminally investigate or prosecute any alcohol or drug abuse patient.[facility] the event this information is protected by the Federal Confidentiality of Alcohol and Drug Abuse Patient Records regulations: The Federal rules restrict any use of the information to criminally investigate or prosecute any alcohol or drug abuse patient.[facility] the event this information is protected by the Federal Confidentiality of Alcohol and Drug Abuse Patient Records regulations: The Federal rules restrict any use of the information to criminally investigate or prosecute any alcohol or drug abuse patient.[facility] the event this information is protected by the Federal Confidentiality of Alcohol and Drug Abuse Patient Records regulations: The Federal rules restrict any use of the information to criminally investigate or prosecute any alcohol or drug abuse patient.[facility] the event this information is protected by the Federal Confidentiality of Alcohol and Drug Abuse Patient Records regulations: The Federal rules restrict any use of the information to criminally investigate or prosecute any alcohol or drug abuse patient.[facility] the event this information is protected by the Federal Confidentiality of Alcohol and Drug Abuse Patient Records regulations: The Federal rules restrict any use of the information to criminally investigate or prosecute any alcohol or drug abuse patient.[facility] the event this information is protected by the Federal Confidentiality of Alcohol and Drug Abuse Patient Records regulations: The Federal rules restrict any use of the information to criminally investigate or prosecute any alcohol or drug abuse patient.[facility] the event this information is protected by the Federal Confidentiality of Alcohol and Drug Abuse Patient Records regulations: The Federal rules restrict any use of the information to criminally investigate or prosecute any alcohol or drug abuse patient.[facility] Reason for Visit (unrecogniz ed section and content) Reason Comments Results XR Cervical Spine an d Pelvis Reason Onset Date Comments Musculoskeletal Problem Immunizations 04/12/2022 Flu vaccination Specialty Diagnoses / Procedures Referred By Contac t Referred To Contact Internal Medicine / [facility] MEDIC[facility] Diagnoses possible chest muscle tear or rib injury-see triage note 04/12/22 Procedures 4C EST Self Nasim Colon MD [address] [place] [address] Referral ID Status Reason Start Date Expiration Date V isits Requested Visits Authorized [id number] Pending Review 04/12/2022 07/11/2022 1 1 Reason Comments Results Reason Comments Recheck Follow up CT Specialty Diagnoses / Procedures Referred By Contac t Referred To Contact Internal Medicine / INTERNAL MEDICINE Diagnoses follow up Procedures 4C EST Nasim Cesar MD [address] [place] [address] Referral ID Status Reason Start Date Expiration Date V isits Requested Visits Authorized [id number] Pending Review 04/15/2022 07/14/2022 1 1 Reason Comments Results Reason Comments Yearly Exam Reason Comments 2 month follow up - hep b vaccine Specialty Diagnoses / Procedures [facility] Diagnoses Spinal stenosis of cervical region Procedures MRI CERVICAL SPINE WO IVCON MRI SPINAL CANAL CERVICAL W/O CONTRAST Sherif Corral, ROLL CARRIER.TRACK INSPECTING SUPERVISOR [address] [place] [address] Mr Imaging [facility] Referral ID Status Reason Start Date Expiration Date V isits Requested Visits Authorized [id number] Closed Auto-Generate d Referral 01/17/2022 02/16/2023 1 1 Care Teams (unrecognized sec tion and content) Adult Daycare Coordinator Relationship Specialty Start Date End Date Nasim Colon MD [address] [place] [address] PCP - General Internal Medicine 10/15/15 Adult Daycare Coordinator Relationship Specialty Start Date End Date Nasim Colon MD [address] [place] [address] PCP - General Internal Medicine 10/15/15 Adult Daycare Coordinator Relationship Specialty Start Date End Date Nasim Colon MD [address] [facility] [place] [address] PCP - General Internal Medicine 10/15/15 Adult Daycare Coordinator Relationship Specialty Start Date End Date Nasim Colon MD [address] [facility] [place] [address] PCP - General Internal Medicine 10/15/15 Adult Daycare Coordinator Relationship Specialty Start Date End Date aNsim Colon MD [address] [facility] [place] [address] PCP - General Internal Medicine 10/15/15 Adult Daycare Coordinator Relationship Specialty Start Date End Date Nasim Colon MD [address] [facility] [place] [address] PCP - General Internal Medicine 10/15/15 Adult Daycare Coordinator Relationship Specialty Start Date End Date Nasim Colon MD [address] [facility] [place] [address] PCP - General Internal Medicine 10/15/15 Adult Daycare Coordinator Relationship Specialty Start Date End Date Nasim Colon MD [address] [facility] [place] [address] PCP - General Internal Medicine 10/15/15 Adult Daycare Coordinator Relationship Specialty Start Date End Date Nasim Colon MD [address] [facility] [place] [address] PCP - General Internal Medicine 10/15/15 Adult Daycare Coordinator Relationship Specialty Start Date End Date Nasim Colon MD [address] [place] [address] PCP - General Internal Medicine 10/15/15 INFORMATION SOURCE (unrecogn ized section and content) FOR RECORDS PERTAINING TO PATIENTS WHO ARE OR HAVE BEEN ENROLLED IN A CHEMICAL DEPENDENCY/SUBSTANCEABUSE PROGRAM, SOME INFORMATION MAY BE OMITTED. This clinical summary was aggregated from multiple sources. Caution should be exercised in using it in the provision of clinical care. This summary normalizes information from multiple sources, and as a consequence, information in this document may materially change the coding, format and clinical context of patient data. In addition, data may be omitted in some cases. CLINICAL DECISIONS SHOULD BE BASED ON THE PRIMARY CLINICAL RECORDS. [employer] provides no warranty or guarantee of the accuracy or completeness of information in this document.
[2023-07-03 18:37] VITALS: BMI 26.4
[2023-07-03 18:59] LABS: Bacteria 0 SEEN /hpf (None Seen); Glucose, Dipstick Normal (Normal); Ketone-Dipstick Negative (Negative); Leukocyte Esterase-Dipstick Negative /ul (Negative); Mucous, Urine 0 SEEN /hpf (<or=2+); Nitrite-Dipstick Negative (Negative); Occult Blood-Urine Negative /ul (Negative); Protein-Dipstick 15 mg/dl (Negative); Red Blood Cells-Urine 0 SEEN /hpf (0-5); Urine Bilirubin Dipstick Negative (Negative); Urine Urobilinogen Normal (Normal); White Blood Cells 0 SEEN /hpf (0-5)
--- NOTE | 2023-07-03 19:02 | CT_ITS ---
STUDY: CT ABDOMEN AND PELVIS WITH CONTRAST REASON FOR EXAM: Female, 37 years old. Abdominal pain, low back pain RADIATION DOSAGE (If Supplied By Facility): CTDIvol = ( 12.4 ) mGy, DLP = ( 543.91 ) mGycm TECHNIQUE: Transaxial images were obtained from the dome of the diaphragm to the symphysis pubis without oral contrast. IV 100mL Isovue-370 was administered. Sagittal and coronal images were reconstructed. Individualized dose optimization techniques were used for this CT. COMPARISON: None. FINDINGS: The visualized lung bases are unremarkable. The visualized portions of the heart are within normal limits. Normal liver. The gallbladder is contracted. Normal spleen. Normal pancreas. Normal bilateral adrenal glands. Normal right kidney. Normal left kidney. Normal visualized stomach. Normal small intestine. There are a few colonic diverticula consistent with diverticulosis. The appendix is visualized and appears normal. Normal abdominal aorta. Normal inferior vena cava. Normal retroperitoneum. Normal urinary bladder. Normal visualized uterus. There is no free fluid in the abdomen or pelvis. Normal abdominal wall. There is degenerative change at L5-S1. CT/Abdomen/Pelvis W IV Cont ONLY IMPRESSION: Colonic diverticulosis. No obstruction or abscess. Contracted gallbladder. No biliary dilatation. Electronically Signed: Avery Haque MD at 20:47 EST ,
[2023-07-03 19:23] LABS: Color, Urine Yellow (Yellow); Squamous Epithelial Cells - UA 0-5 SEEN /hpf (5-10); Urine Clarity Clear (Clear)
[2023-07-03 19:24] LABS: Internal QC Validated? YES +Cl - CLEAR BKGD; Pregnancy, Urine Negative Negative
[2023-07-03 19:43] VITALS: BP 117/58; PULSE 95; RESP 16; O2SAT 99
[2023-07-03] MEDS: Potassium Chloride Oral Tablet 20 MEQ PO (21:03)
[2023-07-03 21:24] VITALS: BP 117/58; PULSE 95; RESP 16; TEMP 36.6; O2SAT 99
== END 2023-07-03 21:25 | disposition home or self-care (01) ==
PROVIDERS: Physician Assistant; Emergency Provider Emergency Medicine; PCP Internal Medicine; Visit Provider Emergency Medicine
DX: R10.9 Unspecified abdominal pain (principal); R00.0 Tachycardia, unspecified; D72.829 Elevated white blood cell count, unspecified; M54.50 Low back pain, unspecified; F17.210 Nicotine dependence, cigarettes, uncomplicated
CPT/HCPCS: 74177; 80048; 81001; 81025; 85025; 96374; 99282; Q9967; A4216

== ENCOUNTER → 2024-04-19 | Outpatient (CLI) | payer OTHER, SELFPAY | END | disposition home or self-care (01) | LOC: RAD 12:41 | PROVIDERS: PCP Internal Medicine; Referring Provider Clinical Nurse Specialist Adult Health; Visit Provider Clinical Nurse Specialist Adult Health | DX: M25.512 Pain in left shoulder (principal); M25.562 Pain in left knee | CPT/HCPCS: 73030; 73564 ==